=== PATIENT | female | born 1945 | race Hispanic/Latino ===

== ENCOUNTER 2016-08-07 09:53 | Outpatient (CLI) | payer MEDICARE ==
[2016-08-07] MEDS ORDERED: XYLOCAINE TOPICAL 4% TP ONE ×3 (10:52→15:40)
[2016-08-07] MEDS ORDERED: SILVER NITRATE TP ONE ×2 (11:51→15:40)
== END 2016-08-07 09:54 | disposition home or self-care (01) ==
LOC: WOUND 09:53
PROVIDERS: ATTEND Surgery
DX: T81.89XD Other complications of procedures, not elsewhere classified, subsequent encounter (principal); M19.90 Unspecified osteoarthritis, unspecified site; E05.90 Thyrotoxicosis, unspecified without thyrotoxic crisis or storm; F32.9 Major depressive disorder, single episode, unspecified; Z96.641 Presence of right artificial hip joint; Y83.8 Other surgical procedures as the cause of abnormal reaction of the patient, or of later complication, without mention of misadventure at the time of the procedure
CPT/HCPCS: 17250; G0463; 99214

== ENCOUNTER 2016-08-21 08:55 | Outpatient (CLI) | payer MEDICARE ==
[2016-08-21] MEDS ORDERED: XYLOCAINE TOPICAL 2% TP ONE (09:19)
[2016-08-21] MEDS ORDERED: XYLOCAINE TOPICAL 2% ONE (09:19)
== END 2016-08-21 08:56 | disposition home or self-care (01) ==
LOC: WOUND 08:55
PROVIDERS: ATTEND Surgery
DX: T81.89XD Other complications of procedures, not elsewhere classified, subsequent encounter (principal); E03.9 Hypothyroidism, unspecified; M19.90 Unspecified osteoarthritis, unspecified site; F32.9 Major depressive disorder, single episode, unspecified; Z90.710 Acquired absence of both cervix and uterus; Z96.641 Presence of right artificial hip joint; Y83.8 Other surgical procedures as the cause of abnormal reaction of the patient, or of later complication, without mention of misadventure at the time of the procedure

== ENCOUNTER 2016-09-05 08:51 | Outpatient (CLI) | payer MEDICARE ==
[2016-09-05] MEDS ORDERED: XYLOCAINE TOPICAL 4% TP ONE ×2 (09:00→09:06)
== END 2016-09-05 08:52 | disposition home or self-care (01) ==
LOC: WOUND 08:51
PROVIDERS: ATTEND Surgery
DX: T81.89XD Other complications of procedures, not elsewhere classified, subsequent encounter (principal); E03.9 Hypothyroidism, unspecified; M19.90 Unspecified osteoarthritis, unspecified site; F32.9 Major depressive disorder, single episode, unspecified; Z90.710 Acquired absence of both cervix and uterus; Z96.641 Presence of right artificial hip joint; Y83.8 Other surgical procedures as the cause of abnormal reaction of the patient, or of later complication, without mention of misadventure at the time of the procedure
CPT/HCPCS: 99214; G0463

== ENCOUNTER 2016-09-26 09:03 | Outpatient (CLI) | payer MEDICARE ==
[2016-09-26] MEDS ORDERED: XYLOCAINE TOPICAL 2% TP ONE ×2 (09:14→09:37)
[2016-09-26] MEDS ORDERED: SILVER NITRATE TP ONE ×2 (09:20→09:37)
== END 2016-09-26 09:04 | disposition home or self-care (01) ==
LOC: WOUND 09:03
PROVIDERS: ATTEND Surgery
DX: T81.89XD Other complications of procedures, not elsewhere classified, subsequent encounter (principal); E03.9 Hypothyroidism, unspecified; M19.90 Unspecified osteoarthritis, unspecified site; F32.9 Major depressive disorder, single episode, unspecified; Z90.710 Acquired absence of both cervix and uterus; Z96.641 Presence of right artificial hip joint; Y83.8 Other surgical procedures as the cause of abnormal reaction of the patient, or of later complication, without mention of misadventure at the time of the procedure
CPT/HCPCS: 17250; G0463

== ENCOUNTER 2016-10-10 08:53 | Outpatient (CLI) | payer MEDICARE ==
[2016-10-10] MEDS ORDERED: XYLOCAINE TOPICAL 4% TP ONE ×2 (09:10)
[2016-10-10] MEDS ORDERED: SILVER NITRATE TP ONE ×2 (09:22→09:54)
== END 2016-10-10 08:54 | disposition home or self-care (01) ==
LOC: WOUND 08:53
PROVIDERS: ATTEND Surgery
DX: T81.89XD Other complications of procedures, not elsewhere classified, subsequent encounter (principal); E03.9 Hypothyroidism, unspecified; M19.90 Unspecified osteoarthritis, unspecified site; F32.9 Major depressive disorder, single episode, unspecified; Y83.8 Other surgical procedures as the cause of abnormal reaction of the patient, or of later complication, without mention of misadventure at the time of the procedure
CPT/HCPCS: 17250; G0463

== ENCOUNTER 2016-11-07 08:49 | Outpatient (CLI) | payer MEDICARE | END 2016-11-07 08:50 | disposition home or self-care (01) | LOC: WOUND 08:49 | PROVIDERS: ATTEND Surgery | DX: T81.89XD Other complications of procedures, not elsewhere classified, subsequent encounter (principal); E03.9 Hypothyroidism, unspecified; M19.90 Unspecified osteoarthritis, unspecified site; F32.9 Major depressive disorder, single episode, unspecified; Y83.8 Other surgical procedures as the cause of abnormal reaction of the patient, or of later complication, without mention of misadventure at the time of the procedure | CPT/HCPCS: 99214; G0463 ==

== ENCOUNTER 2017-01-23 08:05 | Outpatient (CLI) | payer OTHER, MEDICARE | END 2017-01-23 08:06 | disposition home or self-care (01) | LOC: WOUND 08:05 | PROVIDERS: ATTEND Surgery | DX: T81.89XD Other complications of procedures, not elsewhere classified, subsequent encounter (principal); M19.90 Unspecified osteoarthritis, unspecified site; E03.9 Hypothyroidism, unspecified; F32.9 Major depressive disorder, single episode, unspecified; Z90.710 Acquired absence of both cervix and uterus; Z96.649 Presence of unspecified artificial hip joint; Y83.8 Other surgical procedures as the cause of abnormal reaction of the patient, or of later complication, without mention of misadventure at the time of the procedure | CPT/HCPCS: 99213; G0463 ==

== ENCOUNTER 2017-03-07 07:00 | Outpatient (CLI) | payer MEDICARE ==
[2017-03-07 07:41] LABS: Hematocrit 44.4 % (30.3-42.9); Hemoglobin 13.9 gm/dl (10.1-14.3); Mean Corpuscular HGB Conc 31 % (30-34); Mean Corpuscular Hemoglobin 29 pg (28-32); Mean Corpuscular Volume 93 fl (79-97); Platelet Count 217 K/mm3 (140-440); Red Blood Count 4.78 M/mm3 (3.65-5.03); Red Cell Distribution Width 14.7 % (13.2-15.2)
[2017-03-07 07:48] LABS: BUN/Creatinine Ratio 21; Blood Urea Nitrogen 15 mg/dL (7-17); Calcium 8.3 mg/dL (8.4-10.2); Hemolysis Index 11
[2017-03-07] MEDS ORDERED: NACL ONE (07:53)
--- NOTE | 2017-03-07 08:49 | Cat Scan Report ---
CT CHEST WITH CONTRAST: HISTORY: Elevated right hemidiaphragm, abnormal chest x-ray. COMPARISON: CT chest with contrast dated 03/30/11. TECHNIQUE: Helical CT in 1.25mm intervals following IV contrast. Sagittal and coronal reformatted images. FINDINGS: Thyroid gland: Normal. Tracheobronchial tree: Normal. Mild physiologic calcifications in the tracheobronchial tree are noted. Esophagus: Normal. Surgical suture lines are partially imaged in the proximal stomach which may represent gastric bypass changes, correlate with history. Heart: Normal. Pericardium: Normal. Mediastinum: Normal. No mass, adenopathy or inflammation. Lung Ryan: The lung parenchyma is within normal limits. No underlying parenchymal lung disease is suspected. There is mild compressive atelectasis at the right lung base from an elevated right hemidiaphragm. The right hemidiaphragm is elevated 3 rib levels or 7 cm compared to the left side on the coronal images. Pleural Spaces: Normal. Musculoskeletal: Moderate thoracic spondylosis. No acute fracture or suspicious bony lesion. IMPRESSION: Elevated right hemidiaphragm as outlined above with compressive atelectasis at the right lung base. Otherwise, unremarkable CT chest with contrast. No mass or adenopathy is identified. Surgical changes in the stomach which may represent gastric bypass surgery.
== END 2017-03-07 07:01 | disposition home or self-care (01) ==
LOC: CT 07:00
PROVIDERS: ATTEND Internal Medicine
DX: J98.11 Atelectasis (principal); J39.8 Other specified diseases of upper respiratory tract; J98.6 Disorders of diaphragm; M47.894 Other spondylosis, thoracic region; R93.8 Abnormal findings on diagnostic imaging of other specified body structures
CPT/HCPCS: 36415; 71260; 80048; 85027; Q9967

== ENCOUNTER 2017-07-03 08:12 | Outpatient (CLI) | payer OTHER ==
[2017-07-03] MEDS ORDERED: XYLOCAINE TOPICAL 4% TP ONE (09:30)
== END 2017-07-03 08:13 | disposition home or self-care (01) ==
LOC: WOUND 08:12
PROVIDERS: ATTEND Surgery
DX: T81.89XD Other complications of procedures, not elsewhere classified, subsequent encounter (principal); L97.111 Non-pressure chronic ulcer of right thigh limited to breakdown of skin; M19.90 Unspecified osteoarthritis, unspecified site; E05.90 Thyrotoxicosis, unspecified without thyrotoxic crisis or storm; F32.9 Major depressive disorder, single episode, unspecified; Z90.710 Acquired absence of both cervix and uterus; Z96.641 Presence of right artificial hip joint; Y83.8 Other surgical procedures as the cause of abnormal reaction of the patient, or of later complication, without mention of misadventure at the time of the procedure
CPT/HCPCS: 11042; 87075; 87116; G0463

== ENCOUNTER 2017-07-10 08:16 | Outpatient (CLI) | payer OTHER ==
[2017-07-10] MEDS ORDERED: XYLOCAINE TOPICAL 4% TP ONE ×2 (08:25→08:35)
== END 2017-07-10 08:17 | disposition home or self-care (01) ==
LOC: WOUND 08:16
PROVIDERS: ATTEND Surgery
DX: T81.89XD Other complications of procedures, not elsewhere classified, subsequent encounter (principal); L97.111 Non-pressure chronic ulcer of right thigh limited to breakdown of skin; M19.90 Unspecified osteoarthritis, unspecified site; E05.90 Thyrotoxicosis, unspecified without thyrotoxic crisis or storm; F32.9 Major depressive disorder, single episode, unspecified; Z90.710 Acquired absence of both cervix and uterus; Z96.641 Presence of right artificial hip joint; Y83.8 Other surgical procedures as the cause of abnormal reaction of the patient, or of later complication, without mention of misadventure at the time of the procedure

== ENCOUNTER 2017-07-17 08:17 | Outpatient (CLI) | payer OTHER ==
[2017-07-17] MEDS ORDERED: XYLOCAINE TOPICAL 4% TP ONE ×2 (08:28→08:34)
== END 2017-07-17 08:18 | disposition home or self-care (01) ==
LOC: WOUND 08:17
PROVIDERS: ATTEND Surgery
DX: T81.89XD Other complications of procedures, not elsewhere classified, subsequent encounter (principal); M19.90 Unspecified osteoarthritis, unspecified site; E05.90 Thyrotoxicosis, unspecified without thyrotoxic crisis or storm; F32.9 Major depressive disorder, single episode, unspecified; Z90.710 Acquired absence of both cervix and uterus; Z96.641 Presence of right artificial hip joint; Y83.8 Other surgical procedures as the cause of abnormal reaction of the patient, or of later complication, without mention of misadventure at the time of the procedure

== ENCOUNTER 2017-07-24 08:10 | Outpatient (CLI) | payer OTHER ==
[2017-07-24] MEDS ORDERED: XYLOCAINE TOPICAL 2% 5ML ONE (08:24)
[2017-07-24] MEDS ORDERED: XYLOCAINE TOPICAL 2% 5ML TP ONE (08:31)
== END 2017-07-24 08:11 | disposition home or self-care (01) ==
LOC: WOUND 08:10
PROVIDERS: ATTEND Surgery
DX: T81.89XD Other complications of procedures, not elsewhere classified, subsequent encounter (principal); L97.111 Non-pressure chronic ulcer of right thigh limited to breakdown of skin; M12.551 Traumatic arthropathy, right hip; M19.90 Unspecified osteoarthritis, unspecified site; E05.90 Thyrotoxicosis, unspecified without thyrotoxic crisis or storm; F32.9 Major depressive disorder, single episode, unspecified; Z90.710 Acquired absence of both cervix and uterus; Z96.641 Presence of right artificial hip joint; Y83.8 Other surgical procedures as the cause of abnormal reaction of the patient, or of later complication, without mention of misadventure at the time of the procedure

== ENCOUNTER 2017-07-31 08:12 | Outpatient (CLI) | payer OTHER ==
[2017-07-31] MEDS ORDERED: XYLOCAINE TOPICAL 4% TP ONE ×2 (08:29→08:37)
== END 2017-07-31 08:13 | disposition home or self-care (01) ==
LOC: WOUND 08:12
PROVIDERS: ATTEND Surgery
DX: T81.89XD Other complications of procedures, not elsewhere classified, subsequent encounter (principal); L97.111 Non-pressure chronic ulcer of right thigh limited to breakdown of skin; M19.90 Unspecified osteoarthritis, unspecified site; E05.90 Thyrotoxicosis, unspecified without thyrotoxic crisis or storm; F32.9 Major depressive disorder, single episode, unspecified; Z90.710 Acquired absence of both cervix and uterus; Z96.641 Presence of right artificial hip joint; Y83.8 Other surgical procedures as the cause of abnormal reaction of the patient, or of later complication, without mention of misadventure at the time of the procedure

== ENCOUNTER 2017-08-07 08:18 | Outpatient (CLI) | payer OTHER ==
[2017-08-07] MEDS ORDERED: XYLOCAINE TOPICAL 4% TP ONE ×2 (08:46→08:53)
== END 2017-08-07 08:19 | disposition home or self-care (01) ==
LOC: WOUND 08:18
PROVIDERS: ATTEND Surgery
DX: T81.89XD Other complications of procedures, not elsewhere classified, subsequent encounter (principal); M19.90 Unspecified osteoarthritis, unspecified site; E05.90 Thyrotoxicosis, unspecified without thyrotoxic crisis or storm; F32.9 Major depressive disorder, single episode, unspecified; Z90.710 Acquired absence of both cervix and uterus; Z96.641 Presence of right artificial hip joint; Y83.8 Other surgical procedures as the cause of abnormal reaction of the patient, or of later complication, without mention of misadventure at the time of the procedure
CPT/HCPCS: 99214; G0463

== ENCOUNTER 2017-08-14 08:11 | Outpatient (CLI) | payer OTHER ==
[2017-08-14] MEDS ORDERED: XYLOCAINE TOPICAL 2% 5ML ONE (08:35)
[2017-08-14] MEDS ORDERED: XYLOCAINE TOPICAL 2% 5ML TP ONE (08:41)
== END 2017-08-14 08:12 | disposition home or self-care (01) ==
LOC: WOUND 08:11
PROVIDERS: ATTEND Surgery
DX: T81.89XD Other complications of procedures, not elsewhere classified, subsequent encounter (principal); Z90.710 Acquired absence of both cervix and uterus; Z96.641 Presence of right artificial hip joint; Y83.8 Other surgical procedures as the cause of abnormal reaction of the patient, or of later complication, without mention of misadventure at the time of the procedure

== ENCOUNTER 2017-08-21 08:08 | Outpatient (CLI) | payer OTHER ==
[2017-08-21] MEDS ORDERED: XYLOCAINE TOPICAL 4% TP ONE ×2 (08:32→08:43)
== END 2017-08-21 08:09 | disposition home or self-care (01) ==
LOC: WOUND 08:08
PROVIDERS: ATTEND Surgery
DX: T81.89XD Other complications of procedures, not elsewhere classified, subsequent encounter (principal); M19.90 Unspecified osteoarthritis, unspecified site; E05.90 Thyrotoxicosis, unspecified without thyrotoxic crisis or storm; F32.9 Major depressive disorder, single episode, unspecified; Z90.710 Acquired absence of both cervix and uterus; Z96.641 Presence of right artificial hip joint; Y83.8 Other surgical procedures as the cause of abnormal reaction of the patient, or of later complication, without mention of misadventure at the time of the procedure

== ENCOUNTER 2017-08-28 08:08 | Outpatient (CLI) | payer OTHER ==
[2017-08-28] MEDS ORDERED: XYLOCAINE TOPICAL 2% 5ML ONE (08:21)
[2017-08-28] MEDS ORDERED: XYLOCAINE TOPICAL 2% 5ML TP ONE (08:29)
== END 2017-08-28 08:09 | disposition home or self-care (01) ==
LOC: WOUND 08:08
PROVIDERS: ATTEND Surgery
DX: T81.89XD Other complications of procedures, not elsewhere classified, subsequent encounter (principal); L97.111 Non-pressure chronic ulcer of right thigh limited to breakdown of skin; M19.90 Unspecified osteoarthritis, unspecified site; E05.90 Thyrotoxicosis, unspecified without thyrotoxic crisis or storm; F32.9 Major depressive disorder, single episode, unspecified; Z90.710 Acquired absence of both cervix and uterus; Z96.641 Presence of right artificial hip joint; Y83.8 Other surgical procedures as the cause of abnormal reaction of the patient, or of later complication, without mention of misadventure at the time of the procedure

== ENCOUNTER 2017-09-04 08:12 | Outpatient (CLI) | payer OTHER ==
[2017-09-04] MEDS ORDERED: XYLOCAINE TOPICAL 2% 5ML TP ONE (08:59)
== END 2017-09-04 08:13 | disposition home or self-care (01) ==
LOC: WOUND 08:12
PROVIDERS: ATTEND Surgery
DX: T81.89XD Other complications of procedures, not elsewhere classified, subsequent encounter (principal); M19.90 Unspecified osteoarthritis, unspecified site; E05.90 Thyrotoxicosis, unspecified without thyrotoxic crisis or storm; F32.9 Major depressive disorder, single episode, unspecified; Z90.710 Acquired absence of both cervix and uterus; Z96.641 Presence of right artificial hip joint; Y83.8 Other surgical procedures as the cause of abnormal reaction of the patient, or of later complication, without mention of misadventure at the time of the procedure

== ENCOUNTER 2017-09-18 08:09 | Outpatient (CLI) | payer OTHER ==
[2017-09-18] MEDS ORDERED: XYLOCAINE TOPICAL 2% 5ML ONE (08:11)
[2017-09-18] MEDS ORDERED: XYLOCAINE TOPICAL 2% 5ML TP ONE (08:24)
== END 2017-09-18 08:10 | disposition home or self-care (01) ==
LOC: WOUND 08:09
PROVIDERS: ATTEND Surgery
DX: T81.89XD Other complications of procedures, not elsewhere classified, subsequent encounter (principal); M19.90 Unspecified osteoarthritis, unspecified site; E05.90 Thyrotoxicosis, unspecified without thyrotoxic crisis or storm; F32.9 Major depressive disorder, single episode, unspecified; Z90.710 Acquired absence of both cervix and uterus; Z96.641 Presence of right artificial hip joint; Y83.8 Other surgical procedures as the cause of abnormal reaction of the patient, or of later complication, without mention of misadventure at the time of the procedure

== ENCOUNTER 2017-10-02 08:17 | Outpatient (CLI) | payer OTHER ==
[2017-10-02] MEDS ORDERED: XYLOCAINE TOPICAL 4% TP ONE ×2 (08:34→09:13)
== END 2017-10-02 08:18 | disposition home or self-care (01) ==
LOC: WOUND 08:17
PROVIDERS: ATTEND Surgery
DX: T81.89XD Other complications of procedures, not elsewhere classified, subsequent encounter (principal); M19.90 Unspecified osteoarthritis, unspecified site; E05.90 Thyrotoxicosis, unspecified without thyrotoxic crisis or storm; F32.9 Major depressive disorder, single episode, unspecified; Z90.710 Acquired absence of both cervix and uterus; Z96.641 Presence of right artificial hip joint; Y83.8 Other surgical procedures as the cause of abnormal reaction of the patient, or of later complication, without mention of misadventure at the time of the procedure
CPT/HCPCS: 99214; G0463

== ENCOUNTER 2017-10-30 08:08 | Outpatient (CLI) | payer OTHER | END 2017-10-30 08:09 | disposition home or self-care (01) | LOC: WOUND 08:08 | PROVIDERS: ATTEND Surgery | DX: T81.89XD Other complications of procedures, not elsewhere classified, subsequent encounter (principal); L97.119 Non-pressure chronic ulcer of right thigh with unspecified severity; M19.90 Unspecified osteoarthritis, unspecified site; E05.90 Thyrotoxicosis, unspecified without thyrotoxic crisis or storm; F32.9 Major depressive disorder, single episode, unspecified; Z90.710 Acquired absence of both cervix and uterus; Z96.641 Presence of right artificial hip joint; Y83.8 Other surgical procedures as the cause of abnormal reaction of the patient, or of later complication, without mention of misadventure at the time of the procedure | CPT/HCPCS: 99212; G0463 ==

== ENCOUNTER 2018-03-26 08:11 | Outpatient (CLI) | payer OTHER, MEDICARE ==
[2018-03-26] MEDS ORDERED: XYLOCAINE TOPICAL 4% TP ONE (08:17)
[2018-03-26] MEDS ORDERED: AD OINTMENT TP PRN (08:18)
== END 2018-03-26 08:12 | disposition home or self-care (01) ==
LOC: WOUND 08:11
PROVIDERS: ATTEND Surgery
DX: T81.89XD Other complications of procedures, not elsewhere classified, subsequent encounter (principal); E03.9 Hypothyroidism, unspecified; M19.90 Unspecified osteoarthritis, unspecified site; F32.9 Major depressive disorder, single episode, unspecified; Z90.710 Acquired absence of both cervix and uterus; Y83.8 Other surgical procedures as the cause of abnormal reaction of the patient, or of later complication, without mention of misadventure at the time of the procedure
CPT/HCPCS: 11042; 11045; G0463; 99215

== ENCOUNTER 2018-04-02 08:29 | Outpatient (CLI) | payer MEDICARE ==
[2018-04-02] MEDS ORDERED: XYLOCAINE TOPICAL 4% TP ONE (08:40)
== END 2018-04-02 08:30 | disposition home or self-care (01) ==
LOC: WOUND 08:29
PROVIDERS: ATTEND Surgery
DX: S71.001D Unspecified open wound, right hip, subsequent encounter (principal); E05.90 Thyrotoxicosis, unspecified without thyrotoxic crisis or storm; M19.90 Unspecified osteoarthritis, unspecified site; F32.9 Major depressive disorder, single episode, unspecified; Z90.710 Acquired absence of both cervix and uterus; X58.XXXD Exposure to other specified factors, subsequent encounter

== ENCOUNTER 2018-04-09 08:08 | Outpatient (CLI) | payer OTHER, MEDICARE | END 2018-04-09 08:09 | disposition home or self-care (01) | LOC: WOUND 08:08 ==

== ENCOUNTER 2018-04-16 08:20 | Outpatient (CLI) | payer MEDICARE ==
[2018-04-16] MEDS ORDERED: XYLOCAINE TOPICAL 4% TP ONE (08:23)
[2018-04-16] MEDS ORDERED: AD OINTMENT TP PRN (08:30)
== END 2018-04-16 08:21 | disposition home or self-care (01) ==
LOC: WOUND 08:20
PROVIDERS: ATTEND Surgery
DX: S71.001D Unspecified open wound, right hip, subsequent encounter (principal); M19.90 Unspecified osteoarthritis, unspecified site; E05.90 Thyrotoxicosis, unspecified without thyrotoxic crisis or storm; F32.9 Major depressive disorder, single episode, unspecified; Z90.710 Acquired absence of both cervix and uterus; Z96.641 Presence of right artificial hip joint; X58.XXXD Exposure to other specified factors, subsequent encounter

== ENCOUNTER 2018-04-30 08:12 | Outpatient (CLI) | payer MEDICARE ==
[2018-04-30] MEDS ORDERED: SILVER NITRATE TP ONE (08:33)
== END 2018-04-30 08:13 | disposition home or self-care (01) ==
LOC: WOUND 08:12
PROVIDERS: ATTEND Surgery
DX: S71.001D Unspecified open wound, right hip, subsequent encounter (principal); I10 Essential (primary) hypertension; M19.90 Unspecified osteoarthritis, unspecified site; F32.9 Major depressive disorder, single episode, unspecified; E05.90 Thyrotoxicosis, unspecified without thyrotoxic crisis or storm; Z90.710 Acquired absence of both cervix and uterus; X58.XXXD Exposure to other specified factors, subsequent encounter

== ENCOUNTER 2018-05-14 08:11 | Outpatient (CLI) | payer MEDICARE ==
[2018-05-14] MEDS ORDERED: SILVER NITRATE TP ONE (09:00)
[2018-05-14] MEDS ORDERED: XYLOCAINE TOPICAL 4% TP ONE (09:00)
== END 2018-05-14 08:12 | disposition home or self-care (01) ==
LOC: WOUND 08:11
PROVIDERS: ATTEND Surgery
DX: S71.001D Unspecified open wound, right hip, subsequent encounter (principal); M19.90 Unspecified osteoarthritis, unspecified site; E05.90 Thyrotoxicosis, unspecified without thyrotoxic crisis or storm; F32.9 Major depressive disorder, single episode, unspecified; Z90.710 Acquired absence of both cervix and uterus; X58.XXXD Exposure to other specified factors, subsequent encounter

== ENCOUNTER 2018-05-21 08:04 | Outpatient (CLI) | payer MEDICARE ==
[2018-05-21] MEDS ORDERED: XYLOCAINE TOPICAL 4% TP ONE (08:30)
[2018-05-21] MEDS ORDERED: SILVER NITRATE TP ONE (08:30)
== END 2018-05-21 08:05 | disposition home or self-care (01) ==
LOC: WOUND 08:04
PROVIDERS: ATTEND Surgery
DX: S71.001D Unspecified open wound, right hip, subsequent encounter (principal); M19.90 Unspecified osteoarthritis, unspecified site; E05.90 Thyrotoxicosis, unspecified without thyrotoxic crisis or storm; F32.9 Major depressive disorder, single episode, unspecified; Z90.710 Acquired absence of both cervix and uterus; Z96.641 Presence of right artificial hip joint; X58.XXXD Exposure to other specified factors, subsequent encounter

== ENCOUNTER 2018-05-28 08:03 | Outpatient (CLI) | payer MEDICARE ==
[2018-05-28] MEDS ORDERED: SILVER NITRATE TP ONE (09:00)
[2018-05-28] MEDS ORDERED: XYLOCAINE TOPICAL 4% TP ONE (09:00)
== END 2018-05-28 08:04 | disposition home or self-care (01) ==
LOC: WOUND 08:03
PROVIDERS: ATTEND Surgery
DX: S71.001D Unspecified open wound, right hip, subsequent encounter (principal); M19.90 Unspecified osteoarthritis, unspecified site; E05.90 Thyrotoxicosis, unspecified without thyrotoxic crisis or storm; F32.9 Major depressive disorder, single episode, unspecified; Z90.710 Acquired absence of both cervix and uterus; Z96.641 Presence of right artificial hip joint; X58.XXXD Exposure to other specified factors, subsequent encounter

== ENCOUNTER 2018-06-11 08:02 | Outpatient (CLI) | payer MEDICARE | END 2018-06-11 08:03 | disposition home or self-care (01) | LOC: WOUND 08:02 | PROVIDERS: ATTEND Surgery | DX: S71.001D Unspecified open wound, right hip, subsequent encounter (principal); E05.90 Thyrotoxicosis, unspecified without thyrotoxic crisis or storm; M19.90 Unspecified osteoarthritis, unspecified site; F32.9 Major depressive disorder, single episode, unspecified; Z96.641 Presence of right artificial hip joint; Z90.710 Acquired absence of both cervix and uterus; X58.XXXD Exposure to other specified factors, subsequent encounter | CPT/HCPCS: 97597 ==

== ENCOUNTER 2018-06-18 08:02 | Outpatient (CLI) | payer MEDICARE | END 2018-06-18 08:03 | disposition home or self-care (01) | LOC: WOUND 08:02 | PROVIDERS: ATTEND Surgery | DX: S71.001D Unspecified open wound, right hip, subsequent encounter (principal); M19.90 Unspecified osteoarthritis, unspecified site; F32.9 Major depressive disorder, single episode, unspecified; E05.90 Thyrotoxicosis, unspecified without thyrotoxic crisis or storm; Z90.710 Acquired absence of both cervix and uterus; Z96.641 Presence of right artificial hip joint; X58.XXXD Exposure to other specified factors, subsequent encounter ==

== ENCOUNTER 2018-06-25 08:05 | Outpatient (CLI) | payer MEDICARE ==
[2018-06-25] MEDS ORDERED: XYLOCAINE TOPICAL 4% TP ONE (08:30)
== END 2018-06-25 08:06 | disposition home or self-care (01) ==
LOC: WOUND 08:05
PROVIDERS: ATTEND Surgery
DX: S71.001D Unspecified open wound, right hip, subsequent encounter (principal); M19.90 Unspecified osteoarthritis, unspecified site; F32.9 Major depressive disorder, single episode, unspecified; E05.90 Thyrotoxicosis, unspecified without thyrotoxic crisis or storm; Z90.710 Acquired absence of both cervix and uterus; Z96.641 Presence of right artificial hip joint; X58.XXXD Exposure to other specified factors, subsequent encounter

== ENCOUNTER 2018-07-02 07:55 | Outpatient (CLI) | payer MEDICARE | END 2018-07-02 07:56 | disposition home or self-care (01) | LOC: WOUND 07:55 | PROVIDERS: ATTEND Surgery | DX: S71.001D Unspecified open wound, right hip, subsequent encounter (principal); M19.90 Unspecified osteoarthritis, unspecified site; F32.9 Major depressive disorder, single episode, unspecified; E05.90 Thyrotoxicosis, unspecified without thyrotoxic crisis or storm; Z90.710 Acquired absence of both cervix and uterus; Z96.641 Presence of right artificial hip joint; X58.XXXD Exposure to other specified factors, subsequent encounter ==

== ENCOUNTER 2018-07-09 08:06 | Outpatient (CLI) | payer MEDICARE ==
[2018-07-09] MEDS ORDERED: SILVER NITRATE TP ONE (08:30)
[2018-07-09] MEDS ORDERED: XYLOCAINE TOPICAL 4% TP ONE (08:30)
== END 2018-07-09 08:07 | disposition home or self-care (01) ==
LOC: WOUND 08:06
PROVIDERS: ATTEND Surgery
DX: S71.001D Unspecified open wound, right hip, subsequent encounter (principal); M19.90 Unspecified osteoarthritis, unspecified site; E05.90 Thyrotoxicosis, unspecified without thyrotoxic crisis or storm; F32.9 Major depressive disorder, single episode, unspecified; Z90.710 Acquired absence of both cervix and uterus; Z96.641 Presence of right artificial hip joint; X58.XXXD Exposure to other specified factors, subsequent encounter

== ENCOUNTER 2018-07-16 07:58 | Outpatient (CLI) | payer MEDICARE | END 2018-07-16 07:59 | disposition home or self-care (01) | LOC: WOUND 07:58 | PROVIDERS: ATTEND Surgery | DX: S71.001D Unspecified open wound, right hip, subsequent encounter (principal); M19.90 Unspecified osteoarthritis, unspecified site; E05.90 Thyrotoxicosis, unspecified without thyrotoxic crisis or storm; F32.9 Major depressive disorder, single episode, unspecified; Z90.710 Acquired absence of both cervix and uterus; Z96.641 Presence of right artificial hip joint; X58.XXXD Exposure to other specified factors, subsequent encounter ==

== ENCOUNTER 2018-07-23 08:05 | Outpatient (CLI) | payer MEDICARE ==
[2018-07-23] MEDS ORDERED: XYLOCAINE TOPICAL 4% TP ONE (08:30)
== END 2018-07-23 08:06 | disposition home or self-care (01) ==
LOC: WOUND 08:05
PROVIDERS: ATTEND Surgery
DX: S71.001D Unspecified open wound, right hip, subsequent encounter (principal); M19.90 Unspecified osteoarthritis, unspecified site; E05.90 Thyrotoxicosis, unspecified without thyrotoxic crisis or storm; F32.9 Major depressive disorder, single episode, unspecified; Z90.710 Acquired absence of both cervix and uterus; Z96.641 Presence of right artificial hip joint; X58.XXXD Exposure to other specified factors, subsequent encounter

== ENCOUNTER 2018-07-30 08:03 | Outpatient (CLI) | payer MEDICARE ==
[2018-07-30] MEDS ORDERED: XYLOCAINE TOPICAL 4% TP ONE (08:30)
[2018-07-30] MEDS ORDERED: SILVER NITRATE TP ONE (08:30)
== END 2018-07-30 08:04 | disposition home or self-care (01) ==
LOC: WOUND 08:03
PROVIDERS: ATTEND Surgery
DX: S71.001D Unspecified open wound, right hip, subsequent encounter (principal); M19.90 Unspecified osteoarthritis, unspecified site; E05.90 Thyrotoxicosis, unspecified without thyrotoxic crisis or storm; F32.9 Major depressive disorder, single episode, unspecified; Z90.710 Acquired absence of both cervix and uterus; Z96.641 Presence of right artificial hip joint; X58.XXXD Exposure to other specified factors, subsequent encounter

== ENCOUNTER 2018-08-06 08:03 | Outpatient (CLI) | payer MEDICARE ==
[2018-08-06] MEDS ORDERED: XYLOCAINE TOPICAL 4% TP ONE (08:30)
== END 2018-08-06 08:04 | disposition home or self-care (01) ==
LOC: WOUND 08:03
PROVIDERS: ATTEND Surgery
DX: S71.001D Unspecified open wound, right hip, subsequent encounter (principal); M19.90 Unspecified osteoarthritis, unspecified site; E05.90 Thyrotoxicosis, unspecified without thyrotoxic crisis or storm; F32.9 Major depressive disorder, single episode, unspecified; Z90.710 Acquired absence of both cervix and uterus; Z96.641 Presence of right artificial hip joint; X58.XXXD Exposure to other specified factors, subsequent encounter

== ENCOUNTER 2018-08-13 07:57 | Outpatient (CLI) | payer MEDICARE ==
[2018-08-13] MEDS ORDERED: XYLOCAINE TOPICAL 4% TP ONE (08:30)
== END 2018-08-13 07:58 | disposition home or self-care (01) ==
LOC: WOUND 07:57
PROVIDERS: ATTEND Surgery
DX: S71.001D Unspecified open wound, right hip, subsequent encounter (principal); M19.90 Unspecified osteoarthritis, unspecified site; E05.90 Thyrotoxicosis, unspecified without thyrotoxic crisis or storm; F32.9 Major depressive disorder, single episode, unspecified; Z90.710 Acquired absence of both cervix and uterus; Z96.641 Presence of right artificial hip joint; X58.XXXD Exposure to other specified factors, subsequent encounter

== ENCOUNTER 2018-08-27 08:07 | Outpatient (CLI) | payer MEDICARE | END 2018-08-27 08:08 | disposition home or self-care (01) | LOC: WOUND 08:07 | PROVIDERS: ATTEND Surgery | DX: S71.001D Unspecified open wound, right hip, subsequent encounter (principal); L97.113 Non-pressure chronic ulcer of right thigh with necrosis of muscle; M19.90 Unspecified osteoarthritis, unspecified site; E05.90 Thyrotoxicosis, unspecified without thyrotoxic crisis or storm; F32.9 Major depressive disorder, single episode, unspecified; Z90.710 Acquired absence of both cervix and uterus; Z96.641 Presence of right artificial hip joint; X58.XXXD Exposure to other specified factors, subsequent encounter | CPT/HCPCS: 97605 ==

== ENCOUNTER 2018-09-03 07:59 | Outpatient (CLI) | payer MEDICARE ==
[2018-09-03] MEDS ORDERED: XYLOCAINE TOPICAL 4% TP ONE (08:30)
== END 2018-09-03 08:00 | disposition home or self-care (01) ==
LOC: WOUND 07:59
PROVIDERS: ATTEND Surgery
DX: S71.001D Unspecified open wound, right hip, subsequent encounter (principal); L97.113 Non-pressure chronic ulcer of right thigh with necrosis of muscle; M19.90 Unspecified osteoarthritis, unspecified site; E05.90 Thyrotoxicosis, unspecified without thyrotoxic crisis or storm; F32.9 Major depressive disorder, single episode, unspecified; Z90.710 Acquired absence of both cervix and uterus; Z96.641 Presence of right artificial hip joint; X58.XXXD Exposure to other specified factors, subsequent encounter
CPT/HCPCS: 97605

== ENCOUNTER 2018-09-10 09:13 | Outpatient (CLI) | payer MEDICARE ==
[2018-09-10] MEDS ORDERED: XYLOCAINE TOPICAL 4% TP ONE (09:30)
== END 2018-09-10 09:14 | disposition home or self-care (01) ==
LOC: WOUND 09:13
PROVIDERS: ATTEND Surgery
DX: S71.001D Unspecified open wound, right hip, subsequent encounter (principal); L97.113 Non-pressure chronic ulcer of right thigh with necrosis of muscle; M19.90 Unspecified osteoarthritis, unspecified site; E05.90 Thyrotoxicosis, unspecified without thyrotoxic crisis or storm; F32.9 Major depressive disorder, single episode, unspecified; Z90.710 Acquired absence of both cervix and uterus; Z96.641 Presence of right artificial hip joint; X58.XXXD Exposure to other specified factors, subsequent encounter
CPT/HCPCS: 97605

== ENCOUNTER 2018-09-17 07:55 | Outpatient (CLI) | payer MEDICARE ==
[2018-09-17] MEDS ORDERED: XYLOCAINE TOPICAL 4% TP ONE (08:30)
[2018-09-17] MEDS ORDERED: SILVER NITRATE TP ONE (08:30)
== END 2018-09-17 07:56 | disposition home or self-care (01) ==
LOC: WOUND 07:55
PROVIDERS: ATTEND Surgery
DX: S71.001D Unspecified open wound, right hip, subsequent encounter (principal); L97.113 Non-pressure chronic ulcer of right thigh with necrosis of muscle; M19.90 Unspecified osteoarthritis, unspecified site; E05.90 Thyrotoxicosis, unspecified without thyrotoxic crisis or storm; F32.9 Major depressive disorder, single episode, unspecified; Z90.710 Acquired absence of both cervix and uterus; Z96.641 Presence of right artificial hip joint; X58.XXXD Exposure to other specified factors, subsequent encounter
CPT/HCPCS: 97605

== ENCOUNTER 2018-09-24 07:54 | Outpatient (CLI) | payer MEDICARE ==
[2018-09-24] MEDS ORDERED: XYLOCAINE TOPICAL 4% TP ONE (08:30)
== END 2018-09-24 07:55 | disposition home or self-care (01) ==
LOC: WOUND 07:54
PROVIDERS: ATTEND Surgery
DX: S71.001D Unspecified open wound, right hip, subsequent encounter (principal); L97.113 Non-pressure chronic ulcer of right thigh with necrosis of muscle; M19.90 Unspecified osteoarthritis, unspecified site; E05.90 Thyrotoxicosis, unspecified without thyrotoxic crisis or storm; F32.9 Major depressive disorder, single episode, unspecified; Z90.710 Acquired absence of both cervix and uterus; Z96.641 Presence of right artificial hip joint; X58.XXXD Exposure to other specified factors, subsequent encounter
CPT/HCPCS: 97605

== ENCOUNTER 2018-10-01 07:58 | Outpatient (CLI) | payer MEDICARE | END 2018-10-01 07:59 | disposition home or self-care (01) | LOC: WOUND 07:58 | PROVIDERS: ATTEND Surgery | DX: S71.001D Unspecified open wound, right hip, subsequent encounter (principal); L97.113 Non-pressure chronic ulcer of right thigh with necrosis of muscle; M19.90 Unspecified osteoarthritis, unspecified site; E05.90 Thyrotoxicosis, unspecified without thyrotoxic crisis or storm; F32.9 Major depressive disorder, single episode, unspecified; Z90.710 Acquired absence of both cervix and uterus; Z96.641 Presence of right artificial hip joint; X58.XXXD Exposure to other specified factors, subsequent encounter | CPT/HCPCS: 97605 ==

== ENCOUNTER 2018-10-08 08:08 | Outpatient (CLI) | payer MEDICARE ==
[2018-10-08] MEDS ORDERED: XYLOCAINE TOPICAL 4% TP ONE (09:00)
== END 2018-10-08 08:09 | disposition home or self-care (01) ==
LOC: WOUND 08:08
PROVIDERS: ATTEND Surgery
DX: S71.001D Unspecified open wound, right hip, subsequent encounter (principal); L97.113 Non-pressure chronic ulcer of right thigh with necrosis of muscle; M19.90 Unspecified osteoarthritis, unspecified site; E05.90 Thyrotoxicosis, unspecified without thyrotoxic crisis or storm; F32.9 Major depressive disorder, single episode, unspecified; Z90.710 Acquired absence of both cervix and uterus; Z96.641 Presence of right artificial hip joint; X58.XXXD Exposure to other specified factors, subsequent encounter
CPT/HCPCS: 97605

== ENCOUNTER 2018-10-15 09:47 | Outpatient (CLI) | payer MEDICARE ==
[2018-10-15] MEDS ORDERED: XYLOCAINE TOPICAL 4% TP ONE (10:00)
== END 2018-10-15 09:48 | disposition home or self-care (01) ==
LOC: WOUND 09:47
PROVIDERS: ATTEND Surgery
DX: S71.001D Unspecified open wound, right hip, subsequent encounter (principal); L97.113 Non-pressure chronic ulcer of right thigh with necrosis of muscle; M19.90 Unspecified osteoarthritis, unspecified site; E05.90 Thyrotoxicosis, unspecified without thyrotoxic crisis or storm; F32.9 Major depressive disorder, single episode, unspecified; Z90.710 Acquired absence of both cervix and uterus; Z96.641 Presence of right artificial hip joint; X58.XXXD Exposure to other specified factors, subsequent encounter
CPT/HCPCS: 97605

== ENCOUNTER 2018-10-20 08:02 | Outpatient (CLI) | payer MEDICARE ==
[2018-10-20] MEDS ORDERED: XYLOCAINE TOPICAL 4% TP ONE (09:00)
== END 2018-10-20 08:03 | disposition home or self-care (01) ==
LOC: WOUND 08:02
PROVIDERS: ATTEND Surgery
DX: S71.001D Unspecified open wound, right hip, subsequent encounter (principal); L97.113 Non-pressure chronic ulcer of right thigh with necrosis of muscle; M19.90 Unspecified osteoarthritis, unspecified site; E05.90 Thyrotoxicosis, unspecified without thyrotoxic crisis or storm; F32.9 Major depressive disorder, single episode, unspecified; Z90.710 Acquired absence of both cervix and uterus; Z96.641 Presence of right artificial hip joint; X58.XXXD Exposure to other specified factors, subsequent encounter
CPT/HCPCS: 97605

== ENCOUNTER 2018-10-23 08:28 | Outpatient (CLI) | payer MEDICARE | END 2018-10-23 08:29 | disposition home or self-care (01) | LOC: WOUND 08:28 | PROVIDERS: ATTEND Surgery | DX: S71.001D Unspecified open wound, right hip, subsequent encounter (principal); L97.113 Non-pressure chronic ulcer of right thigh with necrosis of muscle; M19.90 Unspecified osteoarthritis, unspecified site; E05.90 Thyrotoxicosis, unspecified without thyrotoxic crisis or storm; F32.9 Major depressive disorder, single episode, unspecified; Z90.710 Acquired absence of both cervix and uterus; Z96.641 Presence of right artificial hip joint; X58.XXXD Exposure to other specified factors, subsequent encounter | CPT/HCPCS: 97605 ==

== ENCOUNTER 2018-10-27 07:52 | Outpatient (CLI) | payer MEDICARE | END 2018-10-27 07:53 | disposition home or self-care (01) | LOC: WOUND 07:52 | PROVIDERS: ATTEND Surgery | DX: S71.001D Unspecified open wound, right hip, subsequent encounter (principal); L97.113 Non-pressure chronic ulcer of right thigh with necrosis of muscle; M19.90 Unspecified osteoarthritis, unspecified site; E05.90 Thyrotoxicosis, unspecified without thyrotoxic crisis or storm; F32.9 Major depressive disorder, single episode, unspecified; Z90.710 Acquired absence of both cervix and uterus; Z96.641 Presence of right artificial hip joint; X58.XXXD Exposure to other specified factors, subsequent encounter | CPT/HCPCS: 97605 ==

== ENCOUNTER 2018-10-30 08:12 | Outpatient (CLI) | payer MEDICARE | END 2018-10-30 08:13 | disposition home or self-care (01) | LOC: WOUND 08:12 | PROVIDERS: ATTEND Surgery | DX: S71.001D Unspecified open wound, right hip, subsequent encounter (principal); L97.113 Non-pressure chronic ulcer of right thigh with necrosis of muscle; M19.90 Unspecified osteoarthritis, unspecified site; E05.90 Thyrotoxicosis, unspecified without thyrotoxic crisis or storm; F32.9 Major depressive disorder, single episode, unspecified; Z90.710 Acquired absence of both cervix and uterus; Z96.641 Presence of right artificial hip joint; X58.XXXD Exposure to other specified factors, subsequent encounter | CPT/HCPCS: 97605 ==

== ENCOUNTER 2018-11-03 07:58 | Outpatient (CLI) | payer MEDICARE | END 2018-11-03 07:59 | disposition home or self-care (01) | LOC: WOUND 07:58 | PROVIDERS: ATTEND Surgery | DX: S71.001D Unspecified open wound, right hip, subsequent encounter (principal); L97.113 Non-pressure chronic ulcer of right thigh with necrosis of muscle; M19.90 Unspecified osteoarthritis, unspecified site; E05.90 Thyrotoxicosis, unspecified without thyrotoxic crisis or storm; F32.9 Major depressive disorder, single episode, unspecified; Z90.710 Acquired absence of both cervix and uterus; Z96.641 Presence of right artificial hip joint; X58.XXXD Exposure to other specified factors, subsequent encounter | CPT/HCPCS: 97605 ==

== ENCOUNTER 2018-11-06 08:01 | Outpatient (CLI) | payer MEDICARE ==
[2018-11-06] MEDS ORDERED: XYLOCAINE TOPICAL 4% TP ONE (08:19)
== END 2018-11-06 08:02 | disposition home or self-care (01) ==
LOC: WOUND 08:01
PROVIDERS: ATTEND Surgery
DX: S71.001D Unspecified open wound, right hip, subsequent encounter (principal); L97.113 Non-pressure chronic ulcer of right thigh with necrosis of muscle; M19.90 Unspecified osteoarthritis, unspecified site; E05.90 Thyrotoxicosis, unspecified without thyrotoxic crisis or storm; F32.9 Major depressive disorder, single episode, unspecified; Z90.710 Acquired absence of both cervix and uterus; Z96.641 Presence of right artificial hip joint; X58.XXXD Exposure to other specified factors, subsequent encounter
CPT/HCPCS: 97605

== ENCOUNTER 2018-11-13 08:03 | Outpatient (CLI) | payer MEDICARE ==
[2018-11-13] MEDS ORDERED: XYLOCAINE TOPICAL 4% TP ONE (08:30)
== END 2018-11-13 08:04 | disposition home or self-care (01) ==
LOC: WOUND 08:03
PROVIDERS: ATTEND Surgery
DX: S71.001D Unspecified open wound, right hip, subsequent encounter (principal); L97.113 Non-pressure chronic ulcer of right thigh with necrosis of muscle; E05.90 Thyrotoxicosis, unspecified without thyrotoxic crisis or storm; M19.90 Unspecified osteoarthritis, unspecified site; F32.9 Major depressive disorder, single episode, unspecified; Z96.641 Presence of right artificial hip joint; Z90.710 Acquired absence of both cervix and uterus; X58.XXXD Exposure to other specified factors, subsequent encounter
CPT/HCPCS: 97605

== ENCOUNTER 2018-11-17 08:10 | Outpatient (CLI) | payer MEDICARE | END 2018-11-17 08:11 | disposition home or self-care (01) | LOC: WOUND 08:10 | PROVIDERS: ATTEND Surgery | DX: S71.001D Unspecified open wound, right hip, subsequent encounter (principal); L97.113 Non-pressure chronic ulcer of right thigh with necrosis of muscle; E05.90 Thyrotoxicosis, unspecified without thyrotoxic crisis or storm; M19.90 Unspecified osteoarthritis, unspecified site; F32.9 Major depressive disorder, single episode, unspecified; Z96.641 Presence of right artificial hip joint; Z90.710 Acquired absence of both cervix and uterus; X58.XXXD Exposure to other specified factors, subsequent encounter | CPT/HCPCS: 97605 ==

== ENCOUNTER 2018-11-20 08:16 | Outpatient (CLI) | payer MEDICARE ==
[2018-11-20] MEDS ORDERED: XYLOCAINE TOPICAL 4% TP ONE (09:00)
== END 2018-11-20 08:17 | disposition home or self-care (01) ==
LOC: WOUND 08:16
PROVIDERS: ATTEND Surgery
DX: S71.001D Unspecified open wound, right hip, subsequent encounter (principal); L97.113 Non-pressure chronic ulcer of right thigh with necrosis of muscle; E05.90 Thyrotoxicosis, unspecified without thyrotoxic crisis or storm; M19.90 Unspecified osteoarthritis, unspecified site; F32.9 Major depressive disorder, single episode, unspecified; Z96.641 Presence of right artificial hip joint; Z90.710 Acquired absence of both cervix and uterus; X58.XXXD Exposure to other specified factors, subsequent encounter
CPT/HCPCS: 97605

== ENCOUNTER 2018-11-24 07:58 | Outpatient (CLI) | payer MEDICARE | END 2018-11-24 07:59 | disposition home or self-care (01) | LOC: WOUND 07:58 | PROVIDERS: ATTEND Surgery | DX: S71.001D Unspecified open wound, right hip, subsequent encounter (principal); L97.113 Non-pressure chronic ulcer of right thigh with necrosis of muscle; E05.90 Thyrotoxicosis, unspecified without thyrotoxic crisis or storm; M19.90 Unspecified osteoarthritis, unspecified site; F32.9 Major depressive disorder, single episode, unspecified; Z96.641 Presence of right artificial hip joint; Z90.710 Acquired absence of both cervix and uterus; X58.XXXD Exposure to other specified factors, subsequent encounter | CPT/HCPCS: 97605 ==

== ENCOUNTER 2018-12-08 08:12 | Outpatient (CLI) | payer MEDICARE | END 2018-12-08 08:13 | disposition home or self-care (01) | LOC: WOUND 08:12 | PROVIDERS: ATTEND Surgery | DX: S71.001D Unspecified open wound, right hip, subsequent encounter (principal); L97.113 Non-pressure chronic ulcer of right thigh with necrosis of muscle; E05.90 Thyrotoxicosis, unspecified without thyrotoxic crisis or storm; M19.90 Unspecified osteoarthritis, unspecified site; F32.9 Major depressive disorder, single episode, unspecified; Z90.710 Acquired absence of both cervix and uterus; Z96.641 Presence of right artificial hip joint; X58.XXXD Exposure to other specified factors, subsequent encounter | CPT/HCPCS: 97605 ==

== ENCOUNTER 2018-12-11 08:05 | Outpatient (CLI) | payer MEDICARE ==
[2018-12-11] MEDS ORDERED: LIDOCAINE (4%) 40 MG/ML TOPICAL SOLN 50 ML BOTTLE TP ONE (09:00)
== END 2018-12-11 08:06 | disposition home or self-care (01) ==
LOC: WOUND 08:05
PROVIDERS: ATTEND Surgery
DX: S71.001D Unspecified open wound, right hip, subsequent encounter (principal); L97.113 Non-pressure chronic ulcer of right thigh with necrosis of muscle; E05.90 Thyrotoxicosis, unspecified without thyrotoxic crisis or storm; M19.90 Unspecified osteoarthritis, unspecified site; F32.9 Major depressive disorder, single episode, unspecified; Z90.710 Acquired absence of both cervix and uterus; Z96.641 Presence of right artificial hip joint; X58.XXXD Exposure to other specified factors, subsequent encounter
CPT/HCPCS: 97605

== ENCOUNTER 2018-12-15 08:04 | Outpatient (CLI) | payer MEDICARE | END 2018-12-15 08:05 | disposition home or self-care (01) | LOC: WOUND 08:04 | PROVIDERS: ATTEND Surgery | DX: S71.001D Unspecified open wound, right hip, subsequent encounter (principal); L97.113 Non-pressure chronic ulcer of right thigh with necrosis of muscle; E05.90 Thyrotoxicosis, unspecified without thyrotoxic crisis or storm; M19.90 Unspecified osteoarthritis, unspecified site; F32.9 Major depressive disorder, single episode, unspecified; Z90.710 Acquired absence of both cervix and uterus; Z96.641 Presence of right artificial hip joint; X58.XXXD Exposure to other specified factors, subsequent encounter | CPT/HCPCS: 97605 ==

== ENCOUNTER 2018-12-18 08:03 | Outpatient (CLI) | payer MEDICARE | END 2018-12-18 08:04 | disposition home or self-care (01) | LOC: WOUND 08:03 | PROVIDERS: ATTEND Surgery | DX: S71.001D Unspecified open wound, right hip, subsequent encounter (principal); L97.113 Non-pressure chronic ulcer of right thigh with necrosis of muscle; E05.90 Thyrotoxicosis, unspecified without thyrotoxic crisis or storm; M19.90 Unspecified osteoarthritis, unspecified site; F32.9 Major depressive disorder, single episode, unspecified; X58.XXXD Exposure to other specified factors, subsequent encounter | CPT/HCPCS: 97605 ==

== ENCOUNTER 2018-12-22 08:01 | Outpatient (CLI) | payer MEDICARE | END 2018-12-22 08:02 | disposition home or self-care (01) | LOC: WOUND 08:01 | PROVIDERS: ATTEND Surgery | DX: S71.001D Unspecified open wound, right hip, subsequent encounter (principal); L97.113 Non-pressure chronic ulcer of right thigh with necrosis of muscle; E05.90 Thyrotoxicosis, unspecified without thyrotoxic crisis or storm; M19.90 Unspecified osteoarthritis, unspecified site; D32.9 Benign neoplasm of meninges, unspecified; Z90.710 Acquired absence of both cervix and uterus; Z96.641 Presence of right artificial hip joint; X58.XXXD Exposure to other specified factors, subsequent encounter | CPT/HCPCS: 97605 ==

== ENCOUNTER 2018-12-23 09:59 | Outpatient (CLI) | payer MEDICARE | END 2018-12-23 10:00 | disposition home or self-care (01) | LOC: WOUND 09:59 | PROVIDERS: ATTEND Surgery | DX: S71.001D Unspecified open wound, right hip, subsequent encounter (principal); L97.113 Non-pressure chronic ulcer of right thigh with necrosis of muscle; E05.90 Thyrotoxicosis, unspecified without thyrotoxic crisis or storm; M19.90 Unspecified osteoarthritis, unspecified site; F32.9 Major depressive disorder, single episode, unspecified; Z90.710 Acquired absence of both cervix and uterus; Z96.641 Presence of right artificial hip joint; X58.XXXD Exposure to other specified factors, subsequent encounter | CPT/HCPCS: 97605 ==

== ENCOUNTER 2018-12-25 08:02 | Outpatient (CLI) | payer MEDICARE ==
[2018-12-25] MEDS ORDERED: XYLOCAINE TOPICAL 4% TP ONE (09:00)
== END 2018-12-25 08:03 | disposition home or self-care (01) ==
LOC: WOUND 08:02
PROVIDERS: ATTEND Surgery
DX: S71.001D Unspecified open wound, right hip, subsequent encounter (principal); L97.113 Non-pressure chronic ulcer of right thigh with necrosis of muscle; E05.90 Thyrotoxicosis, unspecified without thyrotoxic crisis or storm; M19.90 Unspecified osteoarthritis, unspecified site; F32.9 Major depressive disorder, single episode, unspecified; Z90.710 Acquired absence of both cervix and uterus; Z96.641 Presence of right artificial hip joint; X58.XXXD Exposure to other specified factors, subsequent encounter
CPT/HCPCS: 97605

== ENCOUNTER 2018-12-26 12:39 | Outpatient (CLI) | payer MEDICARE | END 2018-12-26 12:40 | disposition home or self-care (01) | LOC: WOUND 12:39 | PROVIDERS: ATTEND Surgery | DX: S71.001D Unspecified open wound, right hip, subsequent encounter (principal); L97.113 Non-pressure chronic ulcer of right thigh with necrosis of muscle; E05.90 Thyrotoxicosis, unspecified without thyrotoxic crisis or storm; M19.90 Unspecified osteoarthritis, unspecified site; Z90.710 Acquired absence of both cervix and uterus; Z96.641 Presence of right artificial hip joint; X58.XXXD Exposure to other specified factors, subsequent encounter | CPT/HCPCS: 82962 ==

== ENCOUNTER 2018-12-29 08:04 | Outpatient (CLI) | payer MEDICARE | END 2018-12-29 08:05 | disposition home or self-care (01) | LOC: WOUND 08:04 | PROVIDERS: ATTEND Surgery | DX: S71.001D Unspecified open wound, right hip, subsequent encounter (principal); L97.113 Non-pressure chronic ulcer of right thigh with necrosis of muscle; E05.90 Thyrotoxicosis, unspecified without thyrotoxic crisis or storm; M19.90 Unspecified osteoarthritis, unspecified site; F32.9 Major depressive disorder, single episode, unspecified; Z90.710 Acquired absence of both cervix and uterus; Z96.641 Presence of right artificial hip joint; X58.XXXD Exposure to other specified factors, subsequent encounter | CPT/HCPCS: 97605 ==

== ENCOUNTER 2019-01-01 08:03 | Outpatient (CLI) | payer MEDICARE ==
[2019-01-01] MEDS ORDERED: XYLOCAINE TOPICAL 4% TP ONE (08:30)
== END 2019-01-01 08:04 | disposition home or self-care (01) ==
LOC: WOUND 08:03
PROVIDERS: ATTEND Surgery
DX: S71.001D Unspecified open wound, right hip, subsequent encounter (principal); L97.113 Non-pressure chronic ulcer of right thigh with necrosis of muscle; E05.90 Thyrotoxicosis, unspecified without thyrotoxic crisis or storm; M19.90 Unspecified osteoarthritis, unspecified site; F32.9 Major depressive disorder, single episode, unspecified; Z90.710 Acquired absence of both cervix and uterus; Z96.641 Presence of right artificial hip joint; X58.XXXD Exposure to other specified factors, subsequent encounter
CPT/HCPCS: 97605

== ENCOUNTER 2019-01-05 07:56 | Outpatient (CLI) | payer MEDICARE | END 2019-01-05 07:57 | disposition home or self-care (01) | LOC: WOUND 07:56 | PROVIDERS: ATTEND Surgery | DX: S71.001D Unspecified open wound, right hip, subsequent encounter (principal); L97.113 Non-pressure chronic ulcer of right thigh with necrosis of muscle; E05.90 Thyrotoxicosis, unspecified without thyrotoxic crisis or storm; M19.90 Unspecified osteoarthritis, unspecified site; F32.9 Major depressive disorder, single episode, unspecified; Z90.710 Acquired absence of both cervix and uterus; Z96.641 Presence of right artificial hip joint; X58.XXXD Exposure to other specified factors, subsequent encounter | CPT/HCPCS: 97605 ==

== ENCOUNTER 2019-01-08 08:07 | Outpatient (CLI) | payer MEDICARE ==
[2019-01-08] MEDS ORDERED: LIDOCAINE (4%) 40 MG/ML TOPICAL SOLN 50 ML BOTTLE TP ONE (08:30)
== END 2019-01-08 08:08 | disposition home or self-care (01) ==
LOC: WOUND 08:07
PROVIDERS: ATTEND Surgery
DX: S71.001D Unspecified open wound, right hip, subsequent encounter (principal); L97.113 Non-pressure chronic ulcer of right thigh with necrosis of muscle; E05.90 Thyrotoxicosis, unspecified without thyrotoxic crisis or storm; M19.90 Unspecified osteoarthritis, unspecified site; F32.9 Major depressive disorder, single episode, unspecified; Z90.710 Acquired absence of both cervix and uterus; Z96.641 Presence of right artificial hip joint; X58.XXXD Exposure to other specified factors, subsequent encounter
CPT/HCPCS: 97605

== ENCOUNTER 2019-01-12 08:05 | Outpatient (CLI) | payer MEDICARE | END 2019-01-12 08:06 | disposition home or self-care (01) | LOC: WOUND 08:05 | PROVIDERS: ATTEND Surgery | DX: S71.001D Unspecified open wound, right hip, subsequent encounter (principal); L97.113 Non-pressure chronic ulcer of right thigh with necrosis of muscle; E05.90 Thyrotoxicosis, unspecified without thyrotoxic crisis or storm; M19.90 Unspecified osteoarthritis, unspecified site; F32.9 Major depressive disorder, single episode, unspecified; Z96.641 Presence of right artificial hip joint; Z90.710 Acquired absence of both cervix and uterus; X58.XXXD Exposure to other specified factors, subsequent encounter | CPT/HCPCS: 97605 ==

== ENCOUNTER 2019-01-15 08:04 | Outpatient (CLI) | payer MEDICARE ==
[2019-01-15] MEDS ORDERED: LIDOCAINE (4%) 40 MG/ML TOPICAL SOLN 50 ML BOTTLE TP ONE (09:00)
== END 2019-01-15 08:05 | disposition home or self-care (01) ==
LOC: WOUND 08:04
PROVIDERS: ATTEND Surgery
DX: S71.001D Unspecified open wound, right hip, subsequent encounter (principal); L97.113 Non-pressure chronic ulcer of right thigh with necrosis of muscle; E05.90 Thyrotoxicosis, unspecified without thyrotoxic crisis or storm; M19.90 Unspecified osteoarthritis, unspecified site; F32.9 Major depressive disorder, single episode, unspecified; Z96.641 Presence of right artificial hip joint; Z90.710 Acquired absence of both cervix and uterus; X58.XXXD Exposure to other specified factors, subsequent encounter
CPT/HCPCS: 97605

== ENCOUNTER 2019-01-19 08:07 | Outpatient (CLI) | payer MEDICARE | END 2019-01-19 08:08 | disposition home or self-care (01) | LOC: WOUND 08:07 | PROVIDERS: ATTEND Surgery | DX: S71.001D Unspecified open wound, right hip, subsequent encounter (principal); L97.113 Non-pressure chronic ulcer of right thigh with necrosis of muscle; E05.90 Thyrotoxicosis, unspecified without thyrotoxic crisis or storm; M19.90 Unspecified osteoarthritis, unspecified site; F32.9 Major depressive disorder, single episode, unspecified; Z96.641 Presence of right artificial hip joint; Z90.710 Acquired absence of both cervix and uterus; X58.XXXD Exposure to other specified factors, subsequent encounter | CPT/HCPCS: 97605 ==

== ENCOUNTER 2019-01-22 08:12 | Outpatient (CLI) | payer MEDICARE ==
[2019-01-22] MEDS ORDERED: LIDOCAINE (4%) 40 MG/ML TOPICAL SOLN 50 ML BOTTLE TP ONE (09:00)
== END 2019-01-22 08:13 | disposition home or self-care (01) ==
LOC: WOUND 08:12
PROVIDERS: ATTEND Surgery
DX: S71.001D Unspecified open wound, right hip, subsequent encounter (principal); L97.113 Non-pressure chronic ulcer of right thigh with necrosis of muscle; E05.90 Thyrotoxicosis, unspecified without thyrotoxic crisis or storm; M19.90 Unspecified osteoarthritis, unspecified site; F32.9 Major depressive disorder, single episode, unspecified; Z96.641 Presence of right artificial hip joint; Z90.710 Acquired absence of both cervix and uterus; X58.XXXD Exposure to other specified factors, subsequent encounter
CPT/HCPCS: 97605

== ENCOUNTER 2019-01-26 08:02 | Outpatient (CLI) | payer MEDICARE | END 2019-01-26 08:03 | disposition home or self-care (01) | LOC: WOUND 08:02 | PROVIDERS: ATTEND Surgery | DX: S71.001D Unspecified open wound, right hip, subsequent encounter (principal); L97.113 Non-pressure chronic ulcer of right thigh with necrosis of muscle; E05.90 Thyrotoxicosis, unspecified without thyrotoxic crisis or storm; M19.90 Unspecified osteoarthritis, unspecified site; F32.9 Major depressive disorder, single episode, unspecified; Z96.641 Presence of right artificial hip joint; Z90.710 Acquired absence of both cervix and uterus; X58.XXXD Exposure to other specified factors, subsequent encounter | CPT/HCPCS: 97605 ==

== ENCOUNTER 2019-01-29 07:59 | Outpatient (CLI) | payer MEDICARE ==
[2019-01-29] MEDS ORDERED: LIDOCAINE (4%) 40 MG/ML TOPICAL SOLN 50 ML BOTTLE TP ONE (08:30)
== END 2019-01-29 08:00 | disposition home or self-care (01) ==
LOC: WOUND 07:59
PROVIDERS: ATTEND Surgery
DX: S71.001D Unspecified open wound, right hip, subsequent encounter (principal); L97.113 Non-pressure chronic ulcer of right thigh with necrosis of muscle; E05.90 Thyrotoxicosis, unspecified without thyrotoxic crisis or storm; M19.90 Unspecified osteoarthritis, unspecified site; F32.9 Major depressive disorder, single episode, unspecified; Z96.641 Presence of right artificial hip joint; Z90.710 Acquired absence of both cervix and uterus; X58.XXXD Exposure to other specified factors, subsequent encounter
CPT/HCPCS: 97605

== ENCOUNTER 2019-02-02 07:53 | Outpatient (CLI) | payer MEDICARE | END 2019-02-02 07:54 | disposition home or self-care (01) | LOC: WOUND 07:53 | PROVIDERS: ATTEND Surgery | DX: S71.001D Unspecified open wound, right hip, subsequent encounter (principal); L97.113 Non-pressure chronic ulcer of right thigh with necrosis of muscle; M19.90 Unspecified osteoarthritis, unspecified site; E05.90 Thyrotoxicosis, unspecified without thyrotoxic crisis or storm; F32.9 Major depressive disorder, single episode, unspecified; Z96.641 Presence of right artificial hip joint; Z90.710 Acquired absence of both cervix and uterus; X58.XXXD Exposure to other specified factors, subsequent encounter | CPT/HCPCS: 97605 ==

== ENCOUNTER 2019-02-04 09:53 | Outpatient (CLI) | payer MEDICARE ==
[2019-02-04] MEDS ORDERED: LIDOCAINE (4%) 40 MG/ML TOPICAL SOLN 50 ML BOTTLE TP ONE (10:30)
== END 2019-02-04 09:54 | disposition home or self-care (01) ==
LOC: WOUND 09:53
PROVIDERS: ATTEND Surgery
DX: S71.001D Unspecified open wound, right hip, subsequent encounter (principal); L97.113 Non-pressure chronic ulcer of right thigh with necrosis of muscle; M19.90 Unspecified osteoarthritis, unspecified site; E05.90 Thyrotoxicosis, unspecified without thyrotoxic crisis or storm; F32.9 Major depressive disorder, single episode, unspecified; Z96.641 Presence of right artificial hip joint; Z90.710 Acquired absence of both cervix and uterus; X58.XXXD Exposure to other specified factors, subsequent encounter
CPT/HCPCS: 97605

== ENCOUNTER 2019-02-09 08:00 | Outpatient (CLI) | payer MEDICARE | END 2019-02-09 08:01 | disposition home or self-care (01) | LOC: WOUND 08:00 | PROVIDERS: ATTEND Surgery | DX: S71.001D Unspecified open wound, right hip, subsequent encounter (principal); L97.113 Non-pressure chronic ulcer of right thigh with necrosis of muscle; M19.90 Unspecified osteoarthritis, unspecified site; E05.90 Thyrotoxicosis, unspecified without thyrotoxic crisis or storm; F32.9 Major depressive disorder, single episode, unspecified; Z96.641 Presence of right artificial hip joint; Z90.710 Acquired absence of both cervix and uterus; X58.XXXD Exposure to other specified factors, subsequent encounter | CPT/HCPCS: 97605 ==

== ENCOUNTER 2019-02-12 08:00 | Outpatient (CLI) | payer MEDICARE ==
[2019-02-12] MEDS ORDERED: LIDOCAINE (4%) 40 MG/ML TOPICAL SOLN 50 ML BOTTLE TP ONE (08:30)
== END 2019-02-12 08:01 | disposition home or self-care (01) ==
LOC: WOUND 08:00
PROVIDERS: ATTEND Surgery
DX: S71.001D Unspecified open wound, right hip, subsequent encounter (principal); L97.113 Non-pressure chronic ulcer of right thigh with necrosis of muscle; M19.90 Unspecified osteoarthritis, unspecified site; E05.90 Thyrotoxicosis, unspecified without thyrotoxic crisis or storm; F32.9 Major depressive disorder, single episode, unspecified; Z96.641 Presence of right artificial hip joint; Z90.710 Acquired absence of both cervix and uterus; X58.XXXD Exposure to other specified factors, subsequent encounter
CPT/HCPCS: 97605

== ENCOUNTER 2019-02-16 08:05 | Outpatient (CLI) | payer MEDICARE | END 2019-02-16 08:06 | disposition home or self-care (01) | LOC: WOUND 08:05 | PROVIDERS: ATTEND Surgery | DX: S71.001D Unspecified open wound, right hip, subsequent encounter (principal); L97.113 Non-pressure chronic ulcer of right thigh with necrosis of muscle; M19.90 Unspecified osteoarthritis, unspecified site; E05.90 Thyrotoxicosis, unspecified without thyrotoxic crisis or storm; F32.9 Major depressive disorder, single episode, unspecified; Z96.641 Presence of right artificial hip joint; Z90.710 Acquired absence of both cervix and uterus; X58.XXXD Exposure to other specified factors, subsequent encounter | CPT/HCPCS: 97605 ==

== ENCOUNTER 2019-02-19 08:00 | Outpatient (CLI) | payer MEDICARE ==
[2019-02-19] MEDS ORDERED: LIDOCAINE (4%) 40 MG/ML TOPICAL SOLN 50 ML BOTTLE TP ONE (08:30)
== END 2019-02-19 08:01 | disposition home or self-care (01) ==
LOC: WOUND 08:00
PROVIDERS: ATTEND Surgery
DX: S71.001D Unspecified open wound, right hip, subsequent encounter (principal); L97.113 Non-pressure chronic ulcer of right thigh with necrosis of muscle; M19.90 Unspecified osteoarthritis, unspecified site; E05.90 Thyrotoxicosis, unspecified without thyrotoxic crisis or storm; F32.9 Major depressive disorder, single episode, unspecified; Z96.641 Presence of right artificial hip joint; Z90.710 Acquired absence of both cervix and uterus; X58.XXXD Exposure to other specified factors, subsequent encounter
CPT/HCPCS: 97605

== ENCOUNTER 2019-02-23 08:07 | Outpatient (CLI) | payer MEDICARE | END 2019-02-23 08:08 | disposition home or self-care (01) | LOC: WOUND 08:07 | PROVIDERS: ATTEND Surgery | DX: S71.001D Unspecified open wound, right hip, subsequent encounter (principal); L97.113 Non-pressure chronic ulcer of right thigh with necrosis of muscle; M19.90 Unspecified osteoarthritis, unspecified site; E05.90 Thyrotoxicosis, unspecified without thyrotoxic crisis or storm; F32.9 Major depressive disorder, single episode, unspecified; Z96.641 Presence of right artificial hip joint; Z90.710 Acquired absence of both cervix and uterus; X58.XXXD Exposure to other specified factors, subsequent encounter | CPT/HCPCS: 97605 ==

== ENCOUNTER 2019-02-26 08:05 | Outpatient (CLI) | payer MEDICARE ==
[2019-02-26] MEDS ORDERED: LIDOCAINE (4%) 40 MG/ML TOPICAL SOLN 50 ML BOTTLE TP ONE (08:09)
== END 2019-02-26 08:06 | disposition home or self-care (01) ==
LOC: WOUND 08:05
PROVIDERS: ATTEND Surgery
DX: S71.001D Unspecified open wound, right hip, subsequent encounter (principal); L97.113 Non-pressure chronic ulcer of right thigh with necrosis of muscle; M19.90 Unspecified osteoarthritis, unspecified site; E05.90 Thyrotoxicosis, unspecified without thyrotoxic crisis or storm; F32.9 Major depressive disorder, single episode, unspecified; Z96.641 Presence of right artificial hip joint; Z90.710 Acquired absence of both cervix and uterus; X58.XXXD Exposure to other specified factors, subsequent encounter
CPT/HCPCS: 97605

== ENCOUNTER 2019-03-02 07:57 | Outpatient (CLI) | payer MEDICARE | END 2019-03-02 07:58 | disposition home or self-care (01) | LOC: WOUND 07:57 | PROVIDERS: ATTEND Surgery | DX: S71.001D Unspecified open wound, right hip, subsequent encounter (principal); L97.113 Non-pressure chronic ulcer of right thigh with necrosis of muscle; E05.90 Thyrotoxicosis, unspecified without thyrotoxic crisis or storm; M19.90 Unspecified osteoarthritis, unspecified site; F32.9 Major depressive disorder, single episode, unspecified; Z96.641 Presence of right artificial hip joint; Z90.710 Acquired absence of both cervix and uterus; X58.XXXD Exposure to other specified factors, subsequent encounter | CPT/HCPCS: 97605 ==

== ENCOUNTER 2019-03-05 07:56 | Outpatient (CLI) | payer MEDICARE | END 2019-03-05 07:57 | disposition home or self-care (01) | LOC: WOUND 07:56 | CPT/HCPCS: 97605 ==

== ENCOUNTER 2019-03-09 08:00 | Outpatient (CLI) | payer MEDICARE | END 2019-03-09 08:01 | disposition home or self-care (01) | LOC: WOUND 08:00 | PROVIDERS: ATTEND Surgery | DX: S71.001D Unspecified open wound, right hip, subsequent encounter (principal); L97.113 Non-pressure chronic ulcer of right thigh with necrosis of muscle; E05.90 Thyrotoxicosis, unspecified without thyrotoxic crisis or storm; M19.90 Unspecified osteoarthritis, unspecified site; F32.9 Major depressive disorder, single episode, unspecified; Z96.641 Presence of right artificial hip joint; Z90.710 Acquired absence of both cervix and uterus; X58.XXXD Exposure to other specified factors, subsequent encounter | CPT/HCPCS: 97605 ==

== ENCOUNTER 2019-03-16 08:04 | Outpatient (CLI) | payer OTHER, MEDICARE | END 2019-03-16 08:05 | disposition home or self-care (01) | LOC: WOUND 08:04 | PROVIDERS: ATTEND Surgery | DX: S71.001D Unspecified open wound, right hip, subsequent encounter (principal); L97.113 Non-pressure chronic ulcer of right thigh with necrosis of muscle; E05.90 Thyrotoxicosis, unspecified without thyrotoxic crisis or storm; M19.90 Unspecified osteoarthritis, unspecified site; F32.9 Major depressive disorder, single episode, unspecified; Z96.641 Presence of right artificial hip joint; Z90.710 Acquired absence of both cervix and uterus; X58.XXXD Exposure to other specified factors, subsequent encounter | CPT/HCPCS: 97605 ==

== ENCOUNTER 2019-03-19 08:08 | Outpatient (CLI) | payer OTHER, MEDICARE ==
[2019-03-19] MEDS ORDERED: LIDOCAINE (4%) 40 MG/ML TOPICAL SOLN 50 ML BOTTLE TP ONE (09:00)
== END 2019-03-19 08:09 | disposition home or self-care (01) ==
LOC: WOUND 08:08
PROVIDERS: ATTEND Surgery
DX: S71.001D Unspecified open wound, right hip, subsequent encounter (principal); L97.113 Non-pressure chronic ulcer of right thigh with necrosis of muscle; E05.90 Thyrotoxicosis, unspecified without thyrotoxic crisis or storm; M19.90 Unspecified osteoarthritis, unspecified site; F32.9 Major depressive disorder, single episode, unspecified; Z96.641 Presence of right artificial hip joint; Z90.710 Acquired absence of both cervix and uterus; X58.XXXD Exposure to other specified factors, subsequent encounter
CPT/HCPCS: 97605

== ENCOUNTER 2019-03-23 08:02 | Outpatient (CLI) | payer OTHER, MEDICARE | END 2019-03-23 08:03 | disposition home or self-care (01) | LOC: WOUND 08:02 | PROVIDERS: ATTEND Surgery | DX: S71.001D Unspecified open wound, right hip, subsequent encounter (principal); L97.113 Non-pressure chronic ulcer of right thigh with necrosis of muscle; E05.90 Thyrotoxicosis, unspecified without thyrotoxic crisis or storm; M19.90 Unspecified osteoarthritis, unspecified site; F32.9 Major depressive disorder, single episode, unspecified; Z96.641 Presence of right artificial hip joint; Z90.710 Acquired absence of both cervix and uterus; X58.XXXD Exposure to other specified factors, subsequent encounter | CPT/HCPCS: 97605 ==

== ENCOUNTER 2019-03-26 08:03 | Outpatient (CLI) | payer OTHER, MEDICARE ==
[2019-03-26] MEDS ORDERED: LIDOCAINE (4%) 40 MG/ML TOPICAL SOLN 50 ML BOTTLE TP ONE (08:30)
== END 2019-03-26 08:04 | disposition home or self-care (01) ==
LOC: WOUND 08:03
PROVIDERS: ATTEND Surgery
DX: L97.113 Non-pressure chronic ulcer of right thigh with necrosis of muscle (principal); S71.001D Unspecified open wound, right hip, subsequent encounter; E05.90 Thyrotoxicosis, unspecified without thyrotoxic crisis or storm; M19.90 Unspecified osteoarthritis, unspecified site; F32.9 Major depressive disorder, single episode, unspecified; Z96.641 Presence of right artificial hip joint; Z90.710 Acquired absence of both cervix and uterus; X58.XXXD Exposure to other specified factors, subsequent encounter
CPT/HCPCS: 97605

== ENCOUNTER 2019-04-02 08:09 | Outpatient (CLI) | payer OTHER, MEDICARE ==
[2019-04-02] MEDS ORDERED: LIDOCAINE (4%) 40 MG/ML TOPICAL SOLN 50 ML BOTTLE TP ONE (08:30)
== END 2019-04-02 08:10 | disposition home or self-care (01) ==
LOC: WOUND 08:09
PROVIDERS: ATTEND Surgery
DX: L97.113 Non-pressure chronic ulcer of right thigh with necrosis of muscle (principal); S71.001D Unspecified open wound, right hip, subsequent encounter; E05.90 Thyrotoxicosis, unspecified without thyrotoxic crisis or storm; M19.90 Unspecified osteoarthritis, unspecified site; F32.9 Major depressive disorder, single episode, unspecified; Z96.641 Presence of right artificial hip joint; Z90.710 Acquired absence of both cervix and uterus; X58.XXXD Exposure to other specified factors, subsequent encounter
CPT/HCPCS: 97605

== ENCOUNTER 2019-04-07 15:00 | Outpatient (CLI) | payer MEDICARE | END 2019-04-07 15:01 | disposition home or self-care (01) | LOC: WOUND 15:00 | PROVIDERS: ATTEND Surgery | DX: L97.113 Non-pressure chronic ulcer of right thigh with necrosis of muscle (principal); S71.001D Unspecified open wound, right hip, subsequent encounter; E05.90 Thyrotoxicosis, unspecified without thyrotoxic crisis or storm; M19.90 Unspecified osteoarthritis, unspecified site; F32.9 Major depressive disorder, single episode, unspecified; Z96.641 Presence of right artificial hip joint; Z90.710 Acquired absence of both cervix and uterus; X58.XXXD Exposure to other specified factors, subsequent encounter | CPT/HCPCS: 97605 ==

== ENCOUNTER 2019-04-09 08:11 | Outpatient (CLI) | payer MEDICARE ==
[2019-04-09] MEDS ORDERED: LIDOCAINE (4%) 40 MG/ML TOPICAL SOLN 50 ML BOTTLE TP ONE (09:00)
== END 2019-04-09 08:12 | disposition home or self-care (01) ==
LOC: WOUND 08:11
PROVIDERS: ATTEND Surgery
DX: L97.113 Non-pressure chronic ulcer of right thigh with necrosis of muscle (principal); S71.001D Unspecified open wound, right hip, subsequent encounter; E05.90 Thyrotoxicosis, unspecified without thyrotoxic crisis or storm; M19.90 Unspecified osteoarthritis, unspecified site; F32.9 Major depressive disorder, single episode, unspecified; Z96.641 Presence of right artificial hip joint; Z90.710 Acquired absence of both cervix and uterus; X58.XXXD Exposure to other specified factors, subsequent encounter
CPT/HCPCS: 97605

== ENCOUNTER 2019-04-13 08:26 | Outpatient (CLI) | payer MEDICARE | END 2019-04-13 08:27 | disposition home or self-care (01) | LOC: WOUND 08:26 | PROVIDERS: ATTEND Surgery | DX: L97.113 Non-pressure chronic ulcer of right thigh with necrosis of muscle (principal); S71.001D Unspecified open wound, right hip, subsequent encounter; E05.90 Thyrotoxicosis, unspecified without thyrotoxic crisis or storm; M19.90 Unspecified osteoarthritis, unspecified site; F32.9 Major depressive disorder, single episode, unspecified; Z96.641 Presence of right artificial hip joint; Z90.710 Acquired absence of both cervix and uterus; X58.XXXD Exposure to other specified factors, subsequent encounter | CPT/HCPCS: 97605 ==

== ENCOUNTER 2019-04-16 07:54 | Outpatient (CLI) | payer MEDICARE ==
[2019-04-16] MEDS ORDERED: LIDOCAINE (4%) 40 MG/ML TOPICAL SOLN 50 ML BOTTLE TP ONE (08:30)
== END 2019-04-16 07:55 | disposition home or self-care (01) ==
LOC: WOUND 07:54
PROVIDERS: ATTEND Surgery
DX: L97.113 Non-pressure chronic ulcer of right thigh with necrosis of muscle (principal); S71.001D Unspecified open wound, right hip, subsequent encounter; E05.90 Thyrotoxicosis, unspecified without thyrotoxic crisis or storm; M19.90 Unspecified osteoarthritis, unspecified site; F32.9 Major depressive disorder, single episode, unspecified; Z96.641 Presence of right artificial hip joint; Z90.710 Acquired absence of both cervix and uterus; X58.XXXD Exposure to other specified factors, subsequent encounter
CPT/HCPCS: 97605

== ENCOUNTER 2019-04-20 08:05 | Outpatient (CLI) | payer MEDICARE | END 2019-04-20 08:06 | disposition home or self-care (01) | LOC: WOUND 08:05 | PROVIDERS: ATTEND Surgery | DX: L97.113 Non-pressure chronic ulcer of right thigh with necrosis of muscle (principal); S71.001D Unspecified open wound, right hip, subsequent encounter; E05.90 Thyrotoxicosis, unspecified without thyrotoxic crisis or storm; M19.90 Unspecified osteoarthritis, unspecified site; F32.9 Major depressive disorder, single episode, unspecified; Z96.641 Presence of right artificial hip joint; Z90.710 Acquired absence of both cervix and uterus; X58.XXXD Exposure to other specified factors, subsequent encounter | CPT/HCPCS: 97605 ==

== ENCOUNTER 2019-04-23 08:02 | Outpatient (CLI) | payer MEDICARE ==
[2019-04-23] MEDS ORDERED: LIDOCAINE (4%) 40 MG/ML TOPICAL SOLN 50 ML BOTTLE TP ONE (09:00)
== END 2019-04-23 08:03 | disposition home or self-care (01) ==
LOC: WOUND 08:02
PROVIDERS: ATTEND Surgery
DX: L97.113 Non-pressure chronic ulcer of right thigh with necrosis of muscle (principal); S71.001D Unspecified open wound, right hip, subsequent encounter; E05.90 Thyrotoxicosis, unspecified without thyrotoxic crisis or storm; M19.90 Unspecified osteoarthritis, unspecified site; F32.9 Major depressive disorder, single episode, unspecified; Z96.641 Presence of right artificial hip joint; Z90.710 Acquired absence of both cervix and uterus; X58.XXXD Exposure to other specified factors, subsequent encounter
CPT/HCPCS: 97605

== ENCOUNTER 2019-04-27 08:00 | Outpatient (CLI) | payer MEDICARE | END 2019-04-27 08:01 | disposition home or self-care (01) | LOC: WOUND 08:00 | PROVIDERS: ATTEND Surgery | DX: L97.113 Non-pressure chronic ulcer of right thigh with necrosis of muscle (principal); S71.001D Unspecified open wound, right hip, subsequent encounter; E05.90 Thyrotoxicosis, unspecified without thyrotoxic crisis or storm; M19.90 Unspecified osteoarthritis, unspecified site; F32.9 Major depressive disorder, single episode, unspecified; Z96.641 Presence of right artificial hip joint; Z90.710 Acquired absence of both cervix and uterus; X58.XXXD Exposure to other specified factors, subsequent encounter | CPT/HCPCS: 97605 ==

== ENCOUNTER 2019-04-30 08:03 | Outpatient (CLI) | payer MEDICARE ==
[2019-04-30] MEDS ORDERED: LIDOCAINE (4%) 40 MG/ML TOPICAL SOLN 50 ML BOTTLE TP ONE (09:00)
== END 2019-04-30 08:04 | disposition home or self-care (01) ==
LOC: WOUND 08:03
PROVIDERS: ATTEND Surgery
DX: L97.113 Non-pressure chronic ulcer of right thigh with necrosis of muscle (principal); S71.001D Unspecified open wound, right hip, subsequent encounter; E05.90 Thyrotoxicosis, unspecified without thyrotoxic crisis or storm; M19.90 Unspecified osteoarthritis, unspecified site; F32.9 Major depressive disorder, single episode, unspecified; Z96.641 Presence of right artificial hip joint; Z90.710 Acquired absence of both cervix and uterus; X58.XXXD Exposure to other specified factors, subsequent encounter
CPT/HCPCS: 97605

== ENCOUNTER 2019-05-04 08:05 | Outpatient (CLI) | payer MEDICARE | END 2019-05-04 08:06 | disposition home or self-care (01) | LOC: WOUND 08:05 | PROVIDERS: ATTEND Surgery | DX: L97.113 Non-pressure chronic ulcer of right thigh with necrosis of muscle (principal); S71.001D Unspecified open wound, right hip, subsequent encounter; E05.90 Thyrotoxicosis, unspecified without thyrotoxic crisis or storm; M19.90 Unspecified osteoarthritis, unspecified site; F32.9 Major depressive disorder, single episode, unspecified; Z96.641 Presence of right artificial hip joint; Z90.710 Acquired absence of both cervix and uterus; X58.XXXD Exposure to other specified factors, subsequent encounter | CPT/HCPCS: 97605 ==

== ENCOUNTER 2019-05-07 08:02 | Outpatient (CLI) | payer MEDICARE ==
[2019-05-07] MEDS ORDERED: LIDOCAINE (4%) 40 MG/ML TOPICAL SOLN 50 ML BOTTLE TP ONE (08:04)
== END 2019-05-07 08:03 | disposition home or self-care (01) ==
LOC: WOUND 08:02
PROVIDERS: ATTEND Surgery
DX: L97.113 Non-pressure chronic ulcer of right thigh with necrosis of muscle (principal); S71.001D Unspecified open wound, right hip, subsequent encounter; E05.90 Thyrotoxicosis, unspecified without thyrotoxic crisis or storm; M19.90 Unspecified osteoarthritis, unspecified site; F32.9 Major depressive disorder, single episode, unspecified; Z96.641 Presence of right artificial hip joint; Z90.710 Acquired absence of both cervix and uterus; X58.XXXD Exposure to other specified factors, subsequent encounter
CPT/HCPCS: 97605

== ENCOUNTER 2019-05-11 08:06 | Outpatient (CLI) | payer MEDICARE | END 2019-05-11 08:07 | disposition home or self-care (01) | LOC: WOUND 08:06 | PROVIDERS: ATTEND Surgery | DX: L97.113 Non-pressure chronic ulcer of right thigh with necrosis of muscle (principal); S71.001D Unspecified open wound, right hip, subsequent encounter; E05.90 Thyrotoxicosis, unspecified without thyrotoxic crisis or storm; M19.90 Unspecified osteoarthritis, unspecified site; F32.9 Major depressive disorder, single episode, unspecified; Z96.641 Presence of right artificial hip joint; Z90.710 Acquired absence of both cervix and uterus; X58.XXXD Exposure to other specified factors, subsequent encounter | CPT/HCPCS: 97605 ==

== ENCOUNTER 2019-05-21 08:05 | Outpatient (CLI) | payer MEDICARE ==
[2019-05-21] MEDS ORDERED: LIDOCAINE (4%) 40 MG/ML TOPICAL SOLN 50 ML BOTTLE TP ONE (08:30)
== END 2019-05-21 08:06 | disposition home or self-care (01) ==
LOC: WOUND 08:05
PROVIDERS: ATTEND Surgery
DX: L98.492 Non-pressure chronic ulcer of skin of other sites with fat layer exposed (principal); L97.113 Non-pressure chronic ulcer of right thigh with necrosis of muscle; M19.90 Unspecified osteoarthritis, unspecified site; F32.9 Major depressive disorder, single episode, unspecified; E05.90 Thyrotoxicosis, unspecified without thyrotoxic crisis or storm; Z90.710 Acquired absence of both cervix and uterus; Z96.641 Presence of right artificial hip joint
CPT/HCPCS: 97605

== ENCOUNTER 2019-05-25 08:00 | Outpatient (CLI) | payer MEDICARE | END 2019-05-25 08:01 | disposition home or self-care (01) | LOC: WOUND 08:00 | PROVIDERS: ATTEND Surgery | DX: L97.113 Non-pressure chronic ulcer of right thigh with necrosis of muscle (principal); M19.90 Unspecified osteoarthritis, unspecified site; F32.9 Major depressive disorder, single episode, unspecified; E05.90 Thyrotoxicosis, unspecified without thyrotoxic crisis or storm; Z90.710 Acquired absence of both cervix and uterus; Z96.641 Presence of right artificial hip joint | CPT/HCPCS: 97605 ==

== ENCOUNTER 2019-05-28 08:32 | Outpatient (CLI) | payer MEDICARE ==
[2019-05-28] MEDS ORDERED: LIDOCAINE (4%) 40 MG/ML TOPICAL SOLN 50 ML BOTTLE TP ONE (09:00)
== END 2019-05-28 08:33 | disposition home or self-care (01) ==
LOC: WOUND 08:32
PROVIDERS: ATTEND Surgery
DX: L98.491 Non-pressure chronic ulcer of skin of other sites limited to breakdown of skin (principal); L97.113 Non-pressure chronic ulcer of right thigh with necrosis of muscle; M19.90 Unspecified osteoarthritis, unspecified site; F32.9 Major depressive disorder, single episode, unspecified; E05.90 Thyrotoxicosis, unspecified without thyrotoxic crisis or storm; Z90.710 Acquired absence of both cervix and uterus; Z96.641 Presence of right artificial hip joint
CPT/HCPCS: 97605

== ENCOUNTER 2019-06-01 08:06 | Outpatient (CLI) | payer MEDICARE | END 2019-06-01 08:07 | disposition home or self-care (01) | LOC: WOUND 08:06 | PROVIDERS: ATTEND Surgery | DX: L98.491 Non-pressure chronic ulcer of skin of other sites limited to breakdown of skin (principal); L97.113 Non-pressure chronic ulcer of right thigh with necrosis of muscle; M19.90 Unspecified osteoarthritis, unspecified site; E05.90 Thyrotoxicosis, unspecified without thyrotoxic crisis or storm; F32.9 Major depressive disorder, single episode, unspecified; Z90.49 Acquired absence of other specified parts of digestive tract; Z96.641 Presence of right artificial hip joint | CPT/HCPCS: 97605 ==

== ENCOUNTER 2019-06-04 08:04 | Outpatient (CLI) | payer MEDICARE ==
[2019-06-04] MEDS ORDERED: LIDOCAINE (4%) 40 MG/ML TOPICAL SOLN 50 ML BOTTLE TP ONE (08:11)
== END 2019-06-04 08:05 | disposition home or self-care (01) ==
LOC: WOUND 08:04
PROVIDERS: ATTEND Surgery
DX: L97.113 Non-pressure chronic ulcer of right thigh with necrosis of muscle (principal); S71.001D Unspecified open wound, right hip, subsequent encounter; M19.90 Unspecified osteoarthritis, unspecified site; E05.90 Thyrotoxicosis, unspecified without thyrotoxic crisis or storm; F32.9 Major depressive disorder, single episode, unspecified; Z90.49 Acquired absence of other specified parts of digestive tract; Z96.641 Presence of right artificial hip joint; X58.XXXD Exposure to other specified factors, subsequent encounter
CPT/HCPCS: 97605

== ENCOUNTER 2019-06-11 08:05 | Outpatient (CLI) | payer MEDICARE ==
[2019-06-11] MEDS ORDERED: LIDOCAINE (4%) 40 MG/ML TOPICAL SOLN 50 ML BOTTLE TP ONE (08:30)
== END 2019-06-11 08:06 | disposition home or self-care (01) ==
LOC: WOUND 08:05
PROVIDERS: ATTEND Surgery
DX: L97.113 Non-pressure chronic ulcer of right thigh with necrosis of muscle (principal); S71.001D Unspecified open wound, right hip, subsequent encounter; M19.90 Unspecified osteoarthritis, unspecified site; E05.90 Thyrotoxicosis, unspecified without thyrotoxic crisis or storm; F32.9 Major depressive disorder, single episode, unspecified; Z90.49 Acquired absence of other specified parts of digestive tract; Z96.641 Presence of right artificial hip joint; X58.XXXD Exposure to other specified factors, subsequent encounter
CPT/HCPCS: 97605

== ENCOUNTER 2019-06-15 08:05 | Outpatient (CLI) | payer MEDICARE | END 2019-06-15 08:06 | disposition home or self-care (01) | LOC: WOUND 08:05 | PROVIDERS: ATTEND Surgery | DX: L97.113 Non-pressure chronic ulcer of right thigh with necrosis of muscle (principal); S71.001D Unspecified open wound, right hip, subsequent encounter; M19.90 Unspecified osteoarthritis, unspecified site; E05.90 Thyrotoxicosis, unspecified without thyrotoxic crisis or storm; F32.9 Major depressive disorder, single episode, unspecified; Z90.49 Acquired absence of other specified parts of digestive tract; Z96.641 Presence of right artificial hip joint; X58.XXXD Exposure to other specified factors, subsequent encounter | CPT/HCPCS: 97605 ==

== ENCOUNTER 2019-06-22 08:06 | Outpatient (CLI) | payer MEDICARE | END 2019-06-22 08:07 | disposition home or self-care (01) | LOC: WOUND 08:06 | PROVIDERS: ATTEND Surgery | DX: L97.113 Non-pressure chronic ulcer of right thigh with necrosis of muscle (principal); S71.001D Unspecified open wound, right hip, subsequent encounter; M19.90 Unspecified osteoarthritis, unspecified site; E05.90 Thyrotoxicosis, unspecified without thyrotoxic crisis or storm; F32.9 Major depressive disorder, single episode, unspecified; Z90.49 Acquired absence of other specified parts of digestive tract; Z96.641 Presence of right artificial hip joint; X58.XXXD Exposure to other specified factors, subsequent encounter | CPT/HCPCS: 97605 ==

== ENCOUNTER 2019-06-25 08:05 | Outpatient (CLI) | payer MEDICARE ==
[2019-06-25] MEDS ORDERED: LIDOCAINE (4%) 40 MG/ML TOPICAL SOLN 50 ML BOTTLE TP NR (09:00)
[2019-06-25] MEDS ORDERED: SILVER NITRATE APPLICATOR 1 EA TP SCH (10:30)
== END 2019-06-25 08:06 | disposition home or self-care (01) ==
LOC: WOUND 08:05
PROVIDERS: ATTEND Surgery
DX: L97.113 Non-pressure chronic ulcer of right thigh with necrosis of muscle (principal); S71.001D Unspecified open wound, right hip, subsequent encounter; E05.90 Thyrotoxicosis, unspecified without thyrotoxic crisis or storm; M19.90 Unspecified osteoarthritis, unspecified site; F32.9 Major depressive disorder, single episode, unspecified; Z90.49 Acquired absence of other specified parts of digestive tract; Z96.641 Presence of right artificial hip joint; X58.XXXD Exposure to other specified factors, subsequent encounter
CPT/HCPCS: 97605

== ENCOUNTER 2019-06-29 08:14 | Outpatient (CLI) | payer MEDICARE | END 2019-06-29 08:15 | disposition home or self-care (01) | LOC: WOUND 08:14 | PROVIDERS: ATTEND Surgery | DX: L97.113 Non-pressure chronic ulcer of right thigh with necrosis of muscle (principal); S71.001D Unspecified open wound, right hip, subsequent encounter; E05.90 Thyrotoxicosis, unspecified without thyrotoxic crisis or storm; M19.90 Unspecified osteoarthritis, unspecified site; F32.9 Major depressive disorder, single episode, unspecified; Z90.49 Acquired absence of other specified parts of digestive tract; Z96.641 Presence of right artificial hip joint; X58.XXXD Exposure to other specified factors, subsequent encounter | CPT/HCPCS: 97605 ==

== ENCOUNTER 2019-07-02 13:20 | Outpatient (CLI) | payer MEDICARE ==
[2019-07-02] MEDS ORDERED: LIDOCAINE (4%) 40 MG/ML TOPICAL SOLN 50 ML BOTTLE TP ONE (13:31)
[2019-07-02] MEDS ORDERED: SILVER NITRATE APPLICATOR 1 EA TP ONE (13:50)
== END 2019-07-02 13:21 | disposition home or self-care (01) ==
LOC: WOUND 13:20
PROVIDERS: ATTEND Surgery
DX: L97.113 Non-pressure chronic ulcer of right thigh with necrosis of muscle (principal); S71.001D Unspecified open wound, right hip, subsequent encounter; E05.90 Thyrotoxicosis, unspecified without thyrotoxic crisis or storm; M19.90 Unspecified osteoarthritis, unspecified site; F32.9 Major depressive disorder, single episode, unspecified; Z90.49 Acquired absence of other specified parts of digestive tract; Z96.641 Presence of right artificial hip joint; X58.XXXD Exposure to other specified factors, subsequent encounter

== ENCOUNTER 2019-07-06 08:02 | Outpatient (CLI) | payer MEDICARE | END 2019-07-06 08:03 | disposition home or self-care (01) | LOC: WOUND 08:02 | PROVIDERS: ATTEND Surgery | DX: L97.113 Non-pressure chronic ulcer of right thigh with necrosis of muscle (principal); S71.001D Unspecified open wound, right hip, subsequent encounter; E05.90 Thyrotoxicosis, unspecified without thyrotoxic crisis or storm; M19.90 Unspecified osteoarthritis, unspecified site; F32.9 Major depressive disorder, single episode, unspecified; Z90.49 Acquired absence of other specified parts of digestive tract; Z96.641 Presence of right artificial hip joint; X58.XXXD Exposure to other specified factors, subsequent encounter | CPT/HCPCS: 99213; G0463 ==

== ENCOUNTER 2019-07-09 08:03 | Outpatient (CLI) | payer MEDICARE ==
[2019-07-09] MEDS ORDERED: LIDOCAINE (4%) 40 MG/ML TOPICAL SOLN 50 ML BOTTLE TP ONE (08:30)
== END 2019-07-09 08:04 | disposition home or self-care (01) ==
LOC: WOUND 08:03
PROVIDERS: ATTEND Surgery
DX: L97.113 Non-pressure chronic ulcer of right thigh with necrosis of muscle (principal); S71.001D Unspecified open wound, right hip, subsequent encounter; E05.90 Thyrotoxicosis, unspecified without thyrotoxic crisis or storm; M19.90 Unspecified osteoarthritis, unspecified site; F32.9 Major depressive disorder, single episode, unspecified; Z90.49 Acquired absence of other specified parts of digestive tract; Z96.641 Presence of right artificial hip joint; X58.XXXD Exposure to other specified factors, subsequent encounter

== ENCOUNTER 2019-07-13 15:21 | Outpatient (CLI) | payer MEDICARE | END 2019-07-13 15:22 | disposition home or self-care (01) | LOC: WOUND 15:21 | PROVIDERS: ATTEND Surgery | DX: L97.113 Non-pressure chronic ulcer of right thigh with necrosis of muscle (principal); S71.001D Unspecified open wound, right hip, subsequent encounter; E05.90 Thyrotoxicosis, unspecified without thyrotoxic crisis or storm; M19.90 Unspecified osteoarthritis, unspecified site; F32.9 Major depressive disorder, single episode, unspecified; Z90.49 Acquired absence of other specified parts of digestive tract; Z96.641 Presence of right artificial hip joint; X58.XXXD Exposure to other specified factors, subsequent encounter | CPT/HCPCS: 99212; G0463 ==

== ENCOUNTER 2019-07-20 07:55 | Outpatient (CLI) | payer MEDICARE | END 2019-07-20 07:56 | disposition home or self-care (01) | LOC: WOUND 07:55 | PROVIDERS: ATTEND Surgery | DX: L97.113 Non-pressure chronic ulcer of right thigh with necrosis of muscle (principal); S71.001D Unspecified open wound, right hip, subsequent encounter; E05.90 Thyrotoxicosis, unspecified without thyrotoxic crisis or storm; M19.90 Unspecified osteoarthritis, unspecified site; F32.9 Major depressive disorder, single episode, unspecified; Z90.49 Acquired absence of other specified parts of digestive tract; Z96.641 Presence of right artificial hip joint; X58.XXXD Exposure to other specified factors, subsequent encounter | CPT/HCPCS: 99213; G0463 ==

== ENCOUNTER 2019-07-27 08:16 | Outpatient (CLI) | payer MEDICARE | END 2019-07-27 08:17 | disposition home or self-care (01) | LOC: WOUND 08:16 | PROVIDERS: ATTEND Surgery | DX: L97.113 Non-pressure chronic ulcer of right thigh with necrosis of muscle (principal); S71.001D Unspecified open wound, right hip, subsequent encounter; E05.90 Thyrotoxicosis, unspecified without thyrotoxic crisis or storm; M19.90 Unspecified osteoarthritis, unspecified site; F32.9 Major depressive disorder, single episode, unspecified; Z90.49 Acquired absence of other specified parts of digestive tract; Z96.641 Presence of right artificial hip joint; X58.XXXD Exposure to other specified factors, subsequent encounter | CPT/HCPCS: 99212; G0463 ==

== ENCOUNTER 2019-08-05 08:12 | Outpatient (CLI) | payer MEDICARE ==
[2019-08-05] MEDS ORDERED: LIDOCAINE (4%) 40 MG/ML TOPICAL SOLN 50 ML BOTTLE TP ONE (08:18)
== END 2019-08-05 08:13 | disposition home or self-care (01) ==
LOC: WOUND 08:12
PROVIDERS: ATTEND Surgery
DX: L97.113 Non-pressure chronic ulcer of right thigh with necrosis of muscle (principal); S71.001D Unspecified open wound, right hip, subsequent encounter; M19.90 Unspecified osteoarthritis, unspecified site; E05.90 Thyrotoxicosis, unspecified without thyrotoxic crisis or storm; F32.9 Major depressive disorder, single episode, unspecified; Z96.641 Presence of right artificial hip joint; Z90.710 Acquired absence of both cervix and uterus; X58.XXXD Exposure to other specified factors, subsequent encounter

== ENCOUNTER 2019-08-10 08:09 | Outpatient (CLI) | payer MEDICARE | END 2019-08-10 08:10 | disposition home or self-care (01) | LOC: WOUND 08:09 | PROVIDERS: ATTEND Surgery | DX: L97.113 Non-pressure chronic ulcer of right thigh with necrosis of muscle (principal); S71.001D Unspecified open wound, right hip, subsequent encounter; M19.90 Unspecified osteoarthritis, unspecified site; E05.90 Thyrotoxicosis, unspecified without thyrotoxic crisis or storm; F32.9 Major depressive disorder, single episode, unspecified; Z96.641 Presence of right artificial hip joint; Z90.710 Acquired absence of both cervix and uterus; X58.XXXD Exposure to other specified factors, subsequent encounter | CPT/HCPCS: 99212; G0463 ==

== ENCOUNTER 2019-08-12 08:11 | Outpatient (CLI) | payer MEDICARE ==
[2019-08-12] MEDS ORDERED: LIDOCAINE (4%) 40 MG/ML TOPICAL SOLN 50 ML BOTTLE TP ONE (08:30)
== END 2019-08-12 08:12 | disposition home or self-care (01) ==
LOC: WOUND 08:11
PROVIDERS: ATTEND Surgery
DX: L97.113 Non-pressure chronic ulcer of right thigh with necrosis of muscle (principal); S71.001D Unspecified open wound, right hip, subsequent encounter; M19.90 Unspecified osteoarthritis, unspecified site; E05.90 Thyrotoxicosis, unspecified without thyrotoxic crisis or storm; F32.9 Major depressive disorder, single episode, unspecified; Z96.641 Presence of right artificial hip joint; Z90.710 Acquired absence of both cervix and uterus; X58.XXXD Exposure to other specified factors, subsequent encounter

== ENCOUNTER 2019-08-17 08:07 | Outpatient (CLI) | payer MEDICARE | END 2019-08-17 08:08 | disposition home or self-care (01) | LOC: WOUND 08:07 | PROVIDERS: ATTEND Surgery | DX: L97.113 Non-pressure chronic ulcer of right thigh with necrosis of muscle (principal); S71.001D Unspecified open wound, right hip, subsequent encounter; M19.90 Unspecified osteoarthritis, unspecified site; E05.90 Thyrotoxicosis, unspecified without thyrotoxic crisis or storm; F32.9 Major depressive disorder, single episode, unspecified; Z96.641 Presence of right artificial hip joint; Z90.710 Acquired absence of both cervix and uterus | CPT/HCPCS: 99213; G0463 ==

== ENCOUNTER 2019-08-31 08:08 | Outpatient (CLI) | payer MEDICARE | END 2019-08-31 08:09 | disposition home or self-care (01) | LOC: WOUND 08:08 | PROVIDERS: ATTEND Surgery | DX: L97.113 Non-pressure chronic ulcer of right thigh with necrosis of muscle (principal); S71.001D Unspecified open wound, right hip, subsequent encounter; M19.90 Unspecified osteoarthritis, unspecified site; E05.90 Thyrotoxicosis, unspecified without thyrotoxic crisis or storm; F32.9 Major depressive disorder, single episode, unspecified; Z96.641 Presence of right artificial hip joint; Z90.710 Acquired absence of both cervix and uterus | CPT/HCPCS: 99212; G0463 ==

== ENCOUNTER 2019-09-02 08:16 | Outpatient (CLI) | payer MEDICARE ==
[2019-09-02] MEDS ORDERED: LIDOCAINE (4%) 40 MG/ML TOPICAL SOLN 50 ML BOTTLE TP ONE (08:21)
== END 2019-09-02 08:17 | disposition home or self-care (01) ==
LOC: WOUND 08:16
PROVIDERS: ATTEND Surgery
DX: S71.001D Unspecified open wound, right hip, subsequent encounter (principal); L97.113 Non-pressure chronic ulcer of right thigh with necrosis of muscle; E05.90 Thyrotoxicosis, unspecified without thyrotoxic crisis or storm; M19.90 Unspecified osteoarthritis, unspecified site; F32.9 Major depressive disorder, single episode, unspecified; Z96.641 Presence of right artificial hip joint; Z90.710 Acquired absence of both cervix and uterus; X58.XXXD Exposure to other specified factors, subsequent encounter

== ENCOUNTER 2019-09-08 09:52 | Outpatient (CLI) | payer MEDICARE ==
[2019-09-08] MEDS ORDERED: LIDOCAINE (4%) 40 MG/ML TOPICAL SOLN 50 ML BOTTLE TP ONE (11:00)
== END 2019-09-08 09:53 | disposition home or self-care (01) ==
LOC: WOUND 09:52
PROVIDERS: ATTEND Surgery
DX: L97.113 Non-pressure chronic ulcer of right thigh with necrosis of muscle (principal); S71.001D Unspecified open wound, right hip, subsequent encounter; E05.90 Thyrotoxicosis, unspecified without thyrotoxic crisis or storm; M19.90 Unspecified osteoarthritis, unspecified site; F32.9 Major depressive disorder, single episode, unspecified; Z96.641 Presence of right artificial hip joint; Z90.710 Acquired absence of both cervix and uterus; X58.XXXD Exposure to other specified factors, subsequent encounter

== ENCOUNTER 2019-09-16 09:27 | Outpatient (CLI) | payer MEDICARE ==
[2019-09-16] MEDS ORDERED: LIDOCAINE (4%) 40 MG/ML TOPICAL SOLN 50 ML BOTTLE TP ONE (10:00)
== END 2019-09-16 09:28 | disposition home or self-care (01) ==
LOC: WOUND 09:27
PROVIDERS: ATTEND Surgery
DX: S71.001D Unspecified open wound, right hip, subsequent encounter (principal); L97.113 Non-pressure chronic ulcer of right thigh with necrosis of muscle; E03.9 Hypothyroidism, unspecified; M19.90 Unspecified osteoarthritis, unspecified site; F32.9 Major depressive disorder, single episode, unspecified; Z96.641 Presence of right artificial hip joint; Z90.49 Acquired absence of other specified parts of digestive tract; X58.XXXD Exposure to other specified factors, subsequent encounter

== ENCOUNTER 2019-09-23 08:09 | Outpatient (CLI) | payer MEDICARE ==
[2019-09-23] MEDS ORDERED: LIDOCAINE (4%) 40 MG/ML TOPICAL SOLN 50 ML BOTTLE TP ONE (08:11)
== END 2019-09-23 08:10 | disposition home or self-care (01) ==
LOC: WOUND 08:09
PROVIDERS: ATTEND Surgery
DX: T84.89XD Other specified complication of internal orthopedic prosthetic devices, implants and grafts, subsequent encounter (principal); L97.113 Non-pressure chronic ulcer of right thigh with necrosis of muscle; E03.9 Hypothyroidism, unspecified; M19.90 Unspecified osteoarthritis, unspecified site; F32.9 Major depressive disorder, single episode, unspecified; Z96.641 Presence of right artificial hip joint; Z90.49 Acquired absence of other specified parts of digestive tract; Y83.2 Surgical operation with anastomosis, bypass or graft as the cause of abnormal reaction of the patient, or of later complication, without mention of misadventure at the time of the procedure

== ENCOUNTER 2019-09-30 08:05 | Outpatient (CLI) | payer MEDICARE ==
[2019-09-30] MEDS ORDERED: LIDOCAINE (4%) 40 MG/ML TOPICAL SOLN 50 ML BOTTLE TP ONE (08:09)
== END 2019-09-30 08:06 | disposition home or self-care (01) ==
LOC: WOUND 08:05
PROVIDERS: ATTEND Surgery
DX: S71.001D Unspecified open wound, right hip, subsequent encounter (principal); L97.113 Non-pressure chronic ulcer of right thigh with necrosis of muscle; E03.9 Hypothyroidism, unspecified; M19.90 Unspecified osteoarthritis, unspecified site; F32.9 Major depressive disorder, single episode, unspecified; Z96.641 Presence of right artificial hip joint; Z90.49 Acquired absence of other specified parts of digestive tract; X58.XXXD Exposure to other specified factors, subsequent encounter

== ENCOUNTER 2019-10-12 08:08 | Outpatient (CLI) | payer MEDICARE | END 2019-10-12 08:09 | disposition home or self-care (01) | LOC: WOUND 08:08 | PROVIDERS: ATTEND Surgery | DX: S71.001D Unspecified open wound, right hip, subsequent encounter (principal); L97.113 Non-pressure chronic ulcer of right thigh with necrosis of muscle; E05.90 Thyrotoxicosis, unspecified without thyrotoxic crisis or storm; M19.90 Unspecified osteoarthritis, unspecified site; F32.9 Major depressive disorder, single episode, unspecified; Z96.641 Presence of right artificial hip joint; Z90.49 Acquired absence of other specified parts of digestive tract; X58.XXXD Exposure to other specified factors, subsequent encounter | CPT/HCPCS: 99213; G0463 ==

== ENCOUNTER 2019-10-14 08:04 | Outpatient (CLI) | payer MEDICARE ==
[2019-10-14] MEDS ORDERED: LIDOCAINE (4%) 40 MG/ML TOPICAL SOLN 50 ML BOTTLE TP ONE (08:30)
== END 2019-10-14 08:05 | disposition home or self-care (01) ==
LOC: WOUND 08:04
PROVIDERS: ATTEND Surgery
DX: S71.001D Unspecified open wound, right hip, subsequent encounter (principal); L97.113 Non-pressure chronic ulcer of right thigh with necrosis of muscle; E05.90 Thyrotoxicosis, unspecified without thyrotoxic crisis or storm; M19.90 Unspecified osteoarthritis, unspecified site; F32.9 Major depressive disorder, single episode, unspecified; Z96.641 Presence of right artificial hip joint; Z90.49 Acquired absence of other specified parts of digestive tract; X58.XXXD Exposure to other specified factors, subsequent encounter

== ENCOUNTER 2019-10-21 08:05 | Outpatient (CLI) | payer MEDICARE ==
[2019-10-21] MEDS ORDERED: LIDOCAINE (4%) 40 MG/ML TOPICAL SOLN 50 ML BOTTLE TP ONE (08:30)
== END 2019-10-21 08:06 | disposition home or self-care (01) ==
LOC: WOUND 08:05
PROVIDERS: ATTEND Surgery
DX: S71.001D Unspecified open wound, right hip, subsequent encounter (principal); L97.113 Non-pressure chronic ulcer of right thigh with necrosis of muscle; E05.90 Thyrotoxicosis, unspecified without thyrotoxic crisis or storm; M19.90 Unspecified osteoarthritis, unspecified site; F32.9 Major depressive disorder, single episode, unspecified; Z96.641 Presence of right artificial hip joint; Z90.49 Acquired absence of other specified parts of digestive tract; X58.XXXD Exposure to other specified factors, subsequent encounter

== ENCOUNTER 2019-10-28 08:04 | Outpatient (CLI) | payer MEDICARE ==
[2019-10-28] MEDS ORDERED: LIDOCAINE (4%) 40 MG/ML TOPICAL SOLN 50 ML BOTTLE TP ONE (08:10)
== END 2019-10-28 08:05 | disposition home or self-care (01) ==
LOC: WOUND 08:04
PROVIDERS: ATTEND Surgery
DX: S71.001D Unspecified open wound, right hip, subsequent encounter (principal); L97.113 Non-pressure chronic ulcer of right thigh with necrosis of muscle; E03.9 Hypothyroidism, unspecified; M19.90 Unspecified osteoarthritis, unspecified site; F32.9 Major depressive disorder, single episode, unspecified; Z96.641 Presence of right artificial hip joint; Z90.49 Acquired absence of other specified parts of digestive tract; X58.XXXD Exposure to other specified factors, subsequent encounter

== ENCOUNTER 2019-11-04 08:07 | Outpatient (CLI) | payer MEDICARE ==
[2019-11-04] MEDS ORDERED: LIDOCAINE (4%) 40 MG/ML TOPICAL SOLN 50 ML BOTTLE TP ONE (08:10)
== END 2019-11-04 08:08 | disposition home or self-care (01) ==
LOC: WOUND 08:07
PROVIDERS: ATTEND Surgery
DX: S71.001D Unspecified open wound, right hip, subsequent encounter (principal); L97.113 Non-pressure chronic ulcer of right thigh with necrosis of muscle; M19.90 Unspecified osteoarthritis, unspecified site; E05.90 Thyrotoxicosis, unspecified without thyrotoxic crisis or storm; F32.9 Major depressive disorder, single episode, unspecified; Z96.641 Presence of right artificial hip joint; Z90.49 Acquired absence of other specified parts of digestive tract; Z90.710 Acquired absence of both cervix and uterus; X58.XXXD Exposure to other specified factors, subsequent encounter

== ENCOUNTER 2019-11-11 08:09 | Outpatient (CLI) | payer MEDICARE ==
[2019-11-11] MEDS ORDERED: LIDOCAINE (4%) 40 MG/ML TOPICAL SOLN 50 ML BOTTLE TP ONE (08:18)
== END 2019-11-11 08:10 | disposition home or self-care (01) ==
LOC: WOUND 08:09
PROVIDERS: ATTEND Surgery
DX: S71.001D Unspecified open wound, right hip, subsequent encounter (principal); L97.113 Non-pressure chronic ulcer of right thigh with necrosis of muscle; M19.90 Unspecified osteoarthritis, unspecified site; E05.90 Thyrotoxicosis, unspecified without thyrotoxic crisis or storm; F32.9 Major depressive disorder, single episode, unspecified; Z96.641 Presence of right artificial hip joint; Z90.710 Acquired absence of both cervix and uterus; X58.XXXD Exposure to other specified factors, subsequent encounter

== ENCOUNTER 2019-11-18 08:05 | Outpatient (CLI) | payer MEDICARE ==
[2019-11-18] MEDS ORDERED: LIDOCAINE (4%) 40 MG/ML TOPICAL SOLN 50 ML BOTTLE TP ONE (08:30)
== END 2019-11-18 08:06 | disposition home or self-care (01) ==
LOC: WOUND 08:05
PROVIDERS: ATTEND Surgery
DX: S71.001D Unspecified open wound, right hip, subsequent encounter (principal); L97.113 Non-pressure chronic ulcer of right thigh with necrosis of muscle; M19.90 Unspecified osteoarthritis, unspecified site; E05.90 Thyrotoxicosis, unspecified without thyrotoxic crisis or storm; F32.9 Major depressive disorder, single episode, unspecified; Z96.641 Presence of right artificial hip joint; Z90.710 Acquired absence of both cervix and uterus; X58.XXXD Exposure to other specified factors, subsequent encounter

== ENCOUNTER 2019-11-25 08:04 | Outpatient (CLI) | payer MEDICARE ==
[2019-11-25] MEDS ORDERED: LIDOCAINE (4%) 40 MG/ML TOPICAL SOLN 50 ML BOTTLE TP ONE (08:06)
== END 2019-11-25 08:05 | disposition home or self-care (01) ==
LOC: WOUND 08:04
PROVIDERS: ATTEND Surgery
DX: S71.001D Unspecified open wound, right hip, subsequent encounter (principal); L97.113 Non-pressure chronic ulcer of right thigh with necrosis of muscle; M19.90 Unspecified osteoarthritis, unspecified site; E05.90 Thyrotoxicosis, unspecified without thyrotoxic crisis or storm; F32.9 Major depressive disorder, single episode, unspecified; Z96.641 Presence of right artificial hip joint; Z90.710 Acquired absence of both cervix and uterus; X58.XXXD Exposure to other specified factors, subsequent encounter

== ENCOUNTER 2019-12-09 08:01 | Outpatient (CLI) | payer MEDICARE ==
[2019-12-09] MEDS ORDERED: LIDOCAINE (4%) 40 MG/ML TOPICAL SOLN 50 ML BOTTLE TP ONE (09:00)
== END 2019-12-09 08:02 | disposition home or self-care (01) ==
LOC: WOUND 08:01
PROVIDERS: ATTEND Surgery
DX: S71.001D Unspecified open wound, right hip, subsequent encounter (principal); L97.113 Non-pressure chronic ulcer of right thigh with necrosis of muscle; M19.90 Unspecified osteoarthritis, unspecified site; E05.90 Thyrotoxicosis, unspecified without thyrotoxic crisis or storm; F32.9 Major depressive disorder, single episode, unspecified; Z96.641 Presence of right artificial hip joint; Z90.710 Acquired absence of both cervix and uterus; X58.XXXD Exposure to other specified factors, subsequent encounter

== ENCOUNTER 2019-12-16 08:05 | Outpatient (CLI) | payer MEDICARE ==
[2019-12-16] MEDS ORDERED: LIDOCAINE (4%) 40 MG/ML TOPICAL SOLN 50 ML BOTTLE TP ONE (08:10)
== END 2019-12-16 08:06 | disposition home or self-care (01) ==
LOC: WOUND 08:05
PROVIDERS: ATTEND Surgery
DX: L97.113 Non-pressure chronic ulcer of right thigh with necrosis of muscle (principal); M19.90 Unspecified osteoarthritis, unspecified site; I10 Essential (primary) hypertension; E05.90 Thyrotoxicosis, unspecified without thyrotoxic crisis or storm; F32.9 Major depressive disorder, single episode, unspecified; Z96.641 Presence of right artificial hip joint; Z90.710 Acquired absence of both cervix and uterus

== ENCOUNTER 2019-12-23 08:07 | Outpatient (CLI) | payer MEDICARE ==
[2019-12-23] MEDS ORDERED: LIDOCAINE (4%) 40 MG/ML TOPICAL SOLN 50 ML BOTTLE TP NR (08:10)
== END 2019-12-23 08:08 | disposition home or self-care (01) ==
LOC: WOUND 08:07
PROVIDERS: ATTEND Surgery
DX: L97.113 Non-pressure chronic ulcer of right thigh with necrosis of muscle (principal); M19.90 Unspecified osteoarthritis, unspecified site; I10 Essential (primary) hypertension; E05.90 Thyrotoxicosis, unspecified without thyrotoxic crisis or storm; F32.9 Major depressive disorder, single episode, unspecified; Z96.641 Presence of right artificial hip joint; Z90.710 Acquired absence of both cervix and uterus

== ENCOUNTER 2019-12-30 08:04 | Outpatient (CLI) | payer MEDICARE ==
[2019-12-30] MEDS ORDERED: LIDOCAINE (4%) 40 MG/ML TOPICAL SOLN 50 ML BOTTLE TP SCH (08:06)
== END 2019-12-30 08:05 | disposition home or self-care (01) ==
LOC: WOUND 08:04
PROVIDERS: ATTEND Surgery
DX: L97.113 Non-pressure chronic ulcer of right thigh with necrosis of muscle (principal); M19.90 Unspecified osteoarthritis, unspecified site; I10 Essential (primary) hypertension; E05.90 Thyrotoxicosis, unspecified without thyrotoxic crisis or storm; F32.9 Major depressive disorder, single episode, unspecified; Z96.641 Presence of right artificial hip joint; Z90.710 Acquired absence of both cervix and uterus

== ENCOUNTER 2020-01-06 08:11 | Outpatient (CLI) | payer MEDICARE ==
[2020-01-06] MEDS ORDERED: LIDOCAINE (4%) 40 MG/ML TOPICAL SOLN 50 ML BOTTLE TP SCH (08:18)
== END 2020-01-06 08:12 | disposition home or self-care (01) ==
LOC: WOUND 08:11
PROVIDERS: ATTEND Surgery
DX: L97.113 Non-pressure chronic ulcer of right thigh with necrosis of muscle (principal); M19.90 Unspecified osteoarthritis, unspecified site; I10 Essential (primary) hypertension; E05.90 Thyrotoxicosis, unspecified without thyrotoxic crisis or storm; F32.9 Major depressive disorder, single episode, unspecified; Z96.641 Presence of right artificial hip joint; Z90.710 Acquired absence of both cervix and uterus

== ENCOUNTER 2020-01-13 08:04 | Outpatient (CLI) | payer MEDICARE ==
[2020-01-13] MEDS ORDERED: LIDOCAINE (4%) 40 MG/ML TOPICAL SOLN 50 ML BOTTLE TP ONE (08:12)
== END 2020-01-13 08:05 | disposition home or self-care (01) ==
LOC: WOUND 08:04
PROVIDERS: ATTEND Surgery
DX: S71.001D Unspecified open wound, right hip, subsequent encounter (principal); L97.113 Non-pressure chronic ulcer of right thigh with necrosis of muscle; M19.90 Unspecified osteoarthritis, unspecified site; E05.90 Thyrotoxicosis, unspecified without thyrotoxic crisis or storm; F32.9 Major depressive disorder, single episode, unspecified; Z96.641 Presence of right artificial hip joint; Z90.710 Acquired absence of both cervix and uterus; X58.XXXD Exposure to other specified factors, subsequent encounter

== ENCOUNTER 2020-01-20 08:07 | Outpatient (CLI) | payer MEDICARE ==
[2020-01-20] MEDS ORDERED: LIDOCAINE (4%) 40 MG/ML TOPICAL SOLN 50 ML BOTTLE TP SCH (08:30)
== END 2020-01-20 08:08 | disposition home or self-care (01) ==
LOC: WOUND 08:07
PROVIDERS: ATTEND Surgery
DX: S71.001D Unspecified open wound, right hip, subsequent encounter (principal); L97.113 Non-pressure chronic ulcer of right thigh with necrosis of muscle; M19.90 Unspecified osteoarthritis, unspecified site; E05.90 Thyrotoxicosis, unspecified without thyrotoxic crisis or storm; F32.9 Major depressive disorder, single episode, unspecified; Z96.641 Presence of right artificial hip joint; Z90.710 Acquired absence of both cervix and uterus; X58.XXXD Exposure to other specified factors, subsequent encounter

== ENCOUNTER 2020-01-27 08:11 | Outpatient (CLI) | payer MEDICARE ==
[2020-01-27] MEDS ORDERED: LIDOCAINE (4%) 40 MG/ML TOPICAL SOLN 50 ML BOTTLE TP SCH (08:30)
== END 2020-01-27 08:12 | disposition home or self-care (01) ==
LOC: WOUND 08:11
PROVIDERS: ATTEND Surgery
DX: S71.001D Unspecified open wound, right hip, subsequent encounter (principal); L97.113 Non-pressure chronic ulcer of right thigh with necrosis of muscle; M19.90 Unspecified osteoarthritis, unspecified site; E05.90 Thyrotoxicosis, unspecified without thyrotoxic crisis or storm; F32.9 Major depressive disorder, single episode, unspecified; Z96.641 Presence of right artificial hip joint; Z90.710 Acquired absence of both cervix and uterus; X58.XXXD Exposure to other specified factors, subsequent encounter

== ENCOUNTER 2020-02-03 08:06 | Outpatient (CLI) | payer MEDICARE ==
[2020-02-03] MEDS ORDERED: LIDOCAINE (4%) 40 MG/ML TOPICAL SOLN 50 ML BOTTLE TP ONE (08:30)
== END 2020-02-03 08:07 | disposition home or self-care (01) ==
LOC: WOUND 08:06
PROVIDERS: ATTEND Surgery
DX: S71.001D Unspecified open wound, right hip, subsequent encounter (principal); L97.113 Non-pressure chronic ulcer of right thigh with necrosis of muscle; M19.90 Unspecified osteoarthritis, unspecified site; E05.90 Thyrotoxicosis, unspecified without thyrotoxic crisis or storm; F32.9 Major depressive disorder, single episode, unspecified; Z96.641 Presence of right artificial hip joint; Z90.710 Acquired absence of both cervix and uterus; X58.XXXD Exposure to other specified factors, subsequent encounter

== ENCOUNTER 2020-02-10 08:05 | Outpatient (CLI) | payer MEDICARE ==
[2020-02-10] MEDS ORDERED: LIDOCAINE (4%) 40 MG/ML TOPICAL SOLN 50 ML BOTTLE TP ONE (08:28)
== END 2020-02-10 08:06 | disposition home or self-care (01) ==
LOC: WOUND 08:05
PROVIDERS: ATTEND Surgery
DX: S71.001D Unspecified open wound, right hip, subsequent encounter (principal); L97.113 Non-pressure chronic ulcer of right thigh with necrosis of muscle; M19.90 Unspecified osteoarthritis, unspecified site; E05.90 Thyrotoxicosis, unspecified without thyrotoxic crisis or storm; F32.9 Major depressive disorder, single episode, unspecified; Z96.641 Presence of right artificial hip joint; Z90.710 Acquired absence of both cervix and uterus; X58.XXXD Exposure to other specified factors, subsequent encounter

== ENCOUNTER 2020-02-17 07:57 | Outpatient (CLI) | payer MEDICARE ==
[2020-02-17] MEDS ORDERED: LIDOCAINE (4%) 40 MG/ML TOPICAL SOLN 50 ML BOTTLE TP SCH (08:00)
== END 2020-02-17 07:58 | disposition home or self-care (01) ==
LOC: WOUND 07:57
PROVIDERS: ATTEND Surgery
DX: S71.001D Unspecified open wound, right hip, subsequent encounter (principal); L97.113 Non-pressure chronic ulcer of right thigh with necrosis of muscle; M19.90 Unspecified osteoarthritis, unspecified site; E05.90 Thyrotoxicosis, unspecified without thyrotoxic crisis or storm; F32.9 Major depressive disorder, single episode, unspecified; Z96.641 Presence of right artificial hip joint; Z90.710 Acquired absence of both cervix and uterus; X58.XXXD Exposure to other specified factors, subsequent encounter

== ENCOUNTER 2020-02-25 08:05 | Outpatient (CLI) | payer MEDICARE ==
[2020-02-25] MEDS ORDERED: LIDOCAINE (4%) 40 MG/ML TOPICAL SOLN 50 ML BOTTLE TP SCH (08:30)
== END 2020-02-25 08:06 | disposition home or self-care (01) ==
LOC: WOUND 08:05
PROVIDERS: ATTEND Surgery
DX: S71.001D Unspecified open wound, right hip, subsequent encounter (principal); L97.113 Non-pressure chronic ulcer of right thigh with necrosis of muscle; M19.90 Unspecified osteoarthritis, unspecified site; E05.90 Thyrotoxicosis, unspecified without thyrotoxic crisis or storm; F32.9 Major depressive disorder, single episode, unspecified; Z96.641 Presence of right artificial hip joint; Z90.710 Acquired absence of both cervix and uterus; X58.XXXD Exposure to other specified factors, subsequent encounter

== ENCOUNTER 2020-03-09 08:05 | Outpatient (CLI) | payer MEDICARE ==
[2020-03-09] MEDS ORDERED: LIDOCAINE (4%) 40 MG/ML TOPICAL SOLN 50 ML BOTTLE TP ONE (08:23)
== END 2020-03-09 08:06 | disposition home or self-care (01) ==
LOC: WOUND 08:05
PROVIDERS: ATTEND Surgery
DX: S71.001D Unspecified open wound, right hip, subsequent encounter (principal); L97.113 Non-pressure chronic ulcer of right thigh with necrosis of muscle; M19.90 Unspecified osteoarthritis, unspecified site; E05.90 Thyrotoxicosis, unspecified without thyrotoxic crisis or storm; F32.9 Major depressive disorder, single episode, unspecified; Z96.641 Presence of right artificial hip joint; Z90.710 Acquired absence of both cervix and uterus; X58.XXXD Exposure to other specified factors, subsequent encounter

== ENCOUNTER 2020-03-16 08:05 | Outpatient (CLI) | payer MEDICARE ==
[2020-03-16] MEDS ORDERED: LIDOCAINE (4%) 40 MG/ML TOPICAL SOLN 50 ML BOTTLE TP ONE (08:10)
== END 2020-03-16 08:06 | disposition home or self-care (01) ==
LOC: WOUND 08:05
PROVIDERS: ATTEND Surgery
DX: S71.001D Unspecified open wound, right hip, subsequent encounter (principal); L97.113 Non-pressure chronic ulcer of right thigh with necrosis of muscle; M19.90 Unspecified osteoarthritis, unspecified site; E05.90 Thyrotoxicosis, unspecified without thyrotoxic crisis or storm; F32.9 Major depressive disorder, single episode, unspecified; Z96.641 Presence of right artificial hip joint; Z90.710 Acquired absence of both cervix and uterus; X58.XXXD Exposure to other specified factors, subsequent encounter

== ENCOUNTER 2020-03-30 08:04 | Outpatient (CLI) | payer MEDICARE ==
[~2020-03-30 08:04] MED LIST: LIDOCAINE (4%) 40 MG/ML TOPICAL SOLN 50 ML BOTTLE TP SCH
== END 2020-03-30 08:05 | disposition home or self-care (01) ==
LOC: WOUND 08:04
PROVIDERS: ATTEND Surgery
DX: S71.001D Unspecified open wound, right hip, subsequent encounter (principal); L97.113 Non-pressure chronic ulcer of right thigh with necrosis of muscle; M19.90 Unspecified osteoarthritis, unspecified site; E05.90 Thyrotoxicosis, unspecified without thyrotoxic crisis or storm; F32.9 Major depressive disorder, single episode, unspecified; Z96.641 Presence of right artificial hip joint; Z90.710 Acquired absence of both cervix and uterus; X58.XXXD Exposure to other specified factors, subsequent encounter

== ENCOUNTER 2020-04-06 08:09 | Outpatient (CLI) | payer MEDICARE ==
[2020-04-06] MEDS ORDERED: LIDOCAINE (4%) 40 MG/ML TOPICAL SOLN 50 ML BOTTLE TP ONE (08:17)
== END 2020-04-06 08:10 | disposition home or self-care (01) ==
LOC: WOUND 08:09
PROVIDERS: ATTEND Surgery
DX: S71.001D Unspecified open wound, right hip, subsequent encounter (principal); L97.113 Non-pressure chronic ulcer of right thigh with necrosis of muscle; M19.90 Unspecified osteoarthritis, unspecified site; E05.90 Thyrotoxicosis, unspecified without thyrotoxic crisis or storm; F32.9 Major depressive disorder, single episode, unspecified; Z96.641 Presence of right artificial hip joint; Z90.710 Acquired absence of both cervix and uterus; X58.XXXD Exposure to other specified factors, subsequent encounter

== ENCOUNTER 2020-04-13 08:13 | Outpatient (CLI) | payer MEDICARE ==
[2020-04-13] MEDS ORDERED: LIDOCAINE (4%) 40 MG/ML TOPICAL SOLN 50 ML BOTTLE TP ONE (08:16)
== END 2020-04-13 08:14 | disposition home or self-care (01) ==
LOC: WOUND 08:13
PROVIDERS: ATTEND Surgery
DX: S71.001D Unspecified open wound, right hip, subsequent encounter (principal); L97.113 Non-pressure chronic ulcer of right thigh with necrosis of muscle; M19.90 Unspecified osteoarthritis, unspecified site; E05.90 Thyrotoxicosis, unspecified without thyrotoxic crisis or storm; F32.9 Major depressive disorder, single episode, unspecified; Z96.641 Presence of right artificial hip joint; Z90.710 Acquired absence of both cervix and uterus; X58.XXXD Exposure to other specified factors, subsequent encounter

== ENCOUNTER 2020-04-20 08:04 | Outpatient (CLI) | payer MEDICARE ==
[2020-04-20] MEDS ORDERED: LIDOCAINE (4%) 40 MG/ML TOPICAL SOLN 50 ML BOTTLE TP ONE (08:07)
[2020-04-20] MEDS ORDERED: LIDOCAINE 1%/EPINEPHRINE 1:100,000 VIAL (20 ML) INFILTRATI ONE (08:41)
[2020-04-20] MEDS ORDERED: SILVER NITRATE APPLICATOR 1 EA TP ONE (08:41)
== END 2020-04-20 08:05 | disposition home or self-care (01) ==
LOC: WOUND 08:04
PROVIDERS: ATTEND Surgery
DX: S71.001D Unspecified open wound, right hip, subsequent encounter (principal); L97.113 Non-pressure chronic ulcer of right thigh with necrosis of muscle; M19.90 Unspecified osteoarthritis, unspecified site; E05.90 Thyrotoxicosis, unspecified without thyrotoxic crisis or storm; F32.9 Major depressive disorder, single episode, unspecified; Z96.641 Presence of right artificial hip joint; Z90.710 Acquired absence of both cervix and uterus; X58.XXXD Exposure to other specified factors, subsequent encounter
CPT/HCPCS: 10060; 87075; 87076; 87116; 87186

== ENCOUNTER 2020-04-27 08:03 | Outpatient (CLI) | payer MEDICARE ==
[2020-04-27] MEDS ORDERED: LIDOCAINE (4%) 40 MG/ML TOPICAL SOLN 50 ML BOTTLE TP ONE (08:10)
== END 2020-04-27 08:04 | disposition home or self-care (01) ==
LOC: WOUND 08:03
PROVIDERS: ATTEND Surgery
DX: S71.001D Unspecified open wound, right hip, subsequent encounter (principal); L97.113 Non-pressure chronic ulcer of right thigh with necrosis of muscle; M19.90 Unspecified osteoarthritis, unspecified site; E05.90 Thyrotoxicosis, unspecified without thyrotoxic crisis or storm; F32.9 Major depressive disorder, single episode, unspecified; Z96.641 Presence of right artificial hip joint; Z90.710 Acquired absence of both cervix and uterus; X58.XXXD Exposure to other specified factors, subsequent encounter

== ENCOUNTER 2020-05-04 08:06 | Outpatient (CLI) | payer MEDICARE ==
[2020-05-04] MEDS ORDERED: LIDOCAINE (4%) 40 MG/ML TOPICAL SOLN 50 ML BOTTLE TP ONE (08:18)
== END 2020-05-04 08:07 | disposition home or self-care (01) ==
LOC: WOUND 08:06
PROVIDERS: ATTEND Surgery
DX: S71.001D Unspecified open wound, right hip, subsequent encounter (principal); L97.113 Non-pressure chronic ulcer of right thigh with necrosis of muscle; M19.90 Unspecified osteoarthritis, unspecified site; E05.90 Thyrotoxicosis, unspecified without thyrotoxic crisis or storm; F32.9 Major depressive disorder, single episode, unspecified; Z96.641 Presence of right artificial hip joint; Z90.710 Acquired absence of both cervix and uterus; Z79.82 Long term (current) use of aspirin; X58.XXXD Exposure to other specified factors, subsequent encounter

== ENCOUNTER 2020-05-06 08:30 | Outpatient (CLI) | payer MEDICARE | END 2020-05-06 08:31 | disposition home or self-care (01) | LOC: WOUND 08:30 | PROVIDERS: ATTEND Surgery | DX: S71.001D Unspecified open wound, right hip, subsequent encounter (principal); L97.113 Non-pressure chronic ulcer of right thigh with necrosis of muscle; M19.90 Unspecified osteoarthritis, unspecified site; E05.90 Thyrotoxicosis, unspecified without thyrotoxic crisis or storm; F32.9 Major depressive disorder, single episode, unspecified; Z96.641 Presence of right artificial hip joint; Z90.710 Acquired absence of both cervix and uterus; Z79.82 Long term (current) use of aspirin; X58.XXXD Exposure to other specified factors, subsequent encounter | CPT/HCPCS: 97605 ==

== ENCOUNTER 2020-05-11 08:06 | Outpatient (CLI) | payer MEDICARE ==
[2020-05-11] MEDS ORDERED: LIDOCAINE (4%) 40 MG/ML TOPICAL SOLN 50 ML BOTTLE TP SCH (08:30)
== END 2020-05-11 08:07 | disposition home or self-care (01) ==
LOC: WOUND 08:06
PROVIDERS: ATTEND Surgery
DX: S71.001D Unspecified open wound, right hip, subsequent encounter (principal); L97.113 Non-pressure chronic ulcer of right thigh with necrosis of muscle; M19.90 Unspecified osteoarthritis, unspecified site; E05.90 Thyrotoxicosis, unspecified without thyrotoxic crisis or storm; F32.9 Major depressive disorder, single episode, unspecified; Z96.641 Presence of right artificial hip joint; Z90.710 Acquired absence of both cervix and uterus; Z79.82 Long term (current) use of aspirin; X58.XXXD Exposure to other specified factors, subsequent encounter
CPT/HCPCS: 97605

== ENCOUNTER 2020-05-18 08:06 | Outpatient (CLI) | payer MEDICARE ==
[2020-05-18] MEDS ORDERED: SILVER NITRATE APPLICATOR 1 EA TP ONE (08:23)
[2020-05-18] MEDS ORDERED: LIDOCAINE (4%) 40 MG/ML TOPICAL SOLN 50 ML BOTTLE TP ONE (08:23)
== END 2020-05-18 08:07 | disposition home or self-care (01) ==
LOC: WOUND 08:06
PROVIDERS: ATTEND Surgery
DX: S71.001D Unspecified open wound, right hip, subsequent encounter (principal); L97.113 Non-pressure chronic ulcer of right thigh with necrosis of muscle; M19.90 Unspecified osteoarthritis, unspecified site; E05.90 Thyrotoxicosis, unspecified without thyrotoxic crisis or storm; F32.9 Major depressive disorder, single episode, unspecified; Z96.641 Presence of right artificial hip joint; Z90.710 Acquired absence of both cervix and uterus; Z79.82 Long term (current) use of aspirin; X58.XXXD Exposure to other specified factors, subsequent encounter
CPT/HCPCS: 97605

== ENCOUNTER 2020-05-25 08:07 | Outpatient (CLI) | payer MEDICARE ==
[2020-05-25] MEDS ORDERED: LIDOCAINE (4%) 40 MG/ML TOPICAL SOLN 50 ML BOTTLE TP ONE (08:12)
== END 2020-05-25 08:08 | disposition home or self-care (01) ==
LOC: WOUND 08:07
PROVIDERS: ATTEND Surgery
DX: S71.001D Unspecified open wound, right hip, subsequent encounter (principal); L97.113 Non-pressure chronic ulcer of right thigh with necrosis of muscle; M19.90 Unspecified osteoarthritis, unspecified site; E05.90 Thyrotoxicosis, unspecified without thyrotoxic crisis or storm; F32.9 Major depressive disorder, single episode, unspecified; Z96.641 Presence of right artificial hip joint; Z90.710 Acquired absence of both cervix and uterus; Z79.82 Long term (current) use of aspirin; X58.XXXD Exposure to other specified factors, subsequent encounter
CPT/HCPCS: 97605

== ENCOUNTER 2020-06-01 08:04 | Outpatient (CLI) | payer MEDICARE ==
[2020-06-01] MEDS ORDERED: LIDOCAINE (4%) 40 MG/ML TOPICAL SOLN 50 ML BOTTLE TP ONE (08:05)
[2020-06-01] MEDS ORDERED: SILVER NITRATE APPLICATOR 1 EA TP ONE (10:00)
== END 2020-06-01 08:05 | disposition home or self-care (01) ==
LOC: WOUND 08:04
PROVIDERS: ATTEND Surgery
DX: S71.001D Unspecified open wound, right hip, subsequent encounter (principal); L97.113 Non-pressure chronic ulcer of right thigh with necrosis of muscle; M19.90 Unspecified osteoarthritis, unspecified site; E05.90 Thyrotoxicosis, unspecified without thyrotoxic crisis or storm; F32.9 Major depressive disorder, single episode, unspecified; Z96.641 Presence of right artificial hip joint; Z90.710 Acquired absence of both cervix and uterus; Z79.82 Long term (current) use of aspirin; X58.XXXD Exposure to other specified factors, subsequent encounter
CPT/HCPCS: 97605

== ENCOUNTER 2020-06-15 07:58 | Outpatient (CLI) | payer MEDICARE ==
[2020-06-15] MEDS ORDERED: LIDOCAINE (4%) 40 MG/ML TOPICAL SOLN 50 ML BOTTLE TP SCH (09:00)
== END 2020-06-15 07:59 | disposition home or self-care (01) ==
LOC: WOUND 07:58
PROVIDERS: ATTEND Surgery
DX: S71.001D Unspecified open wound, right hip, subsequent encounter (principal); L97.113 Non-pressure chronic ulcer of right thigh with necrosis of muscle; M19.90 Unspecified osteoarthritis, unspecified site; E05.90 Thyrotoxicosis, unspecified without thyrotoxic crisis or storm; F32.9 Major depressive disorder, single episode, unspecified; Z96.641 Presence of right artificial hip joint; Z90.710 Acquired absence of both cervix and uterus; Z79.82 Long term (current) use of aspirin; X58.XXXD Exposure to other specified factors, subsequent encounter
CPT/HCPCS: 97605

== ENCOUNTER 2020-06-22 08:05 | Outpatient (CLI) | payer MEDICARE ==
[2020-06-22] MEDS ORDERED: LIDOCAINE (4%) 40 MG/ML TOPICAL SOLN 50 ML BOTTLE TP ONE (08:12)
== END 2020-06-22 08:06 | disposition home or self-care (01) ==
LOC: WOUND 08:05
PROVIDERS: ATTEND Surgery
DX: S71.001D Unspecified open wound, right hip, subsequent encounter (principal); L97.113 Non-pressure chronic ulcer of right thigh with necrosis of muscle; M19.90 Unspecified osteoarthritis, unspecified site; E05.90 Thyrotoxicosis, unspecified without thyrotoxic crisis or storm; F32.9 Major depressive disorder, single episode, unspecified; Z96.641 Presence of right artificial hip joint; Z90.710 Acquired absence of both cervix and uterus; Z79.82 Long term (current) use of aspirin; X58.XXXD Exposure to other specified factors, subsequent encounter
CPT/HCPCS: 97605

== ENCOUNTER 2020-06-29 07:59 | Outpatient (CLI) | payer MEDICARE ==
[2020-06-29] MEDS ORDERED: LIDOCAINE (4%) 40 MG/ML TOPICAL SOLN 50 ML BOTTLE TP ONE (08:02)
== END 2020-06-29 08:00 | disposition home or self-care (01) ==
LOC: WOUND 07:59
PROVIDERS: ATTEND Surgery
DX: S71.001D Unspecified open wound, right hip, subsequent encounter (principal); L97.113 Non-pressure chronic ulcer of right thigh with necrosis of muscle; M19.90 Unspecified osteoarthritis, unspecified site; E05.90 Thyrotoxicosis, unspecified without thyrotoxic crisis or storm; F32.9 Major depressive disorder, single episode, unspecified; Z96.641 Presence of right artificial hip joint; Z90.710 Acquired absence of both cervix and uterus; Z79.82 Long term (current) use of aspirin; X58.XXXD Exposure to other specified factors, subsequent encounter
CPT/HCPCS: 97605

== ENCOUNTER 2020-07-06 08:07 | Outpatient (CLI) | payer MEDICARE ==
[2020-07-06] MEDS ORDERED: LIDOCAINE (4%) 40 MG/ML TOPICAL SOLN 50 ML BOTTLE TP ONE (08:17)
== END 2020-07-06 08:08 | disposition home or self-care (01) ==
LOC: WOUND 08:07
PROVIDERS: ATTEND Surgery
DX: S71.001D Unspecified open wound, right hip, subsequent encounter (principal); L97.113 Non-pressure chronic ulcer of right thigh with necrosis of muscle; M19.90 Unspecified osteoarthritis, unspecified site; E05.90 Thyrotoxicosis, unspecified without thyrotoxic crisis or storm; F32.9 Major depressive disorder, single episode, unspecified; Z96.641 Presence of right artificial hip joint; Z90.710 Acquired absence of both cervix and uterus; Z79.82 Long term (current) use of aspirin; X58.XXXD Exposure to other specified factors, subsequent encounter
CPT/HCPCS: 97605

== ENCOUNTER 2020-07-13 08:00 | Outpatient (CLI) | payer MEDICARE ==
[2020-07-13] MEDS ORDERED: LIDOCAINE (4%) 40 MG/ML TOPICAL SOLN 50 ML BOTTLE TP ONE (08:07)
== END 2020-07-13 08:01 | disposition home or self-care (01) ==
LOC: WOUND 08:00
PROVIDERS: ATTEND Surgery
DX: S71.001D Unspecified open wound, right hip, subsequent encounter (principal); L97.113 Non-pressure chronic ulcer of right thigh with necrosis of muscle; M19.90 Unspecified osteoarthritis, unspecified site; E05.90 Thyrotoxicosis, unspecified without thyrotoxic crisis or storm; F32.9 Major depressive disorder, single episode, unspecified; Z96.641 Presence of right artificial hip joint; Z90.710 Acquired absence of both cervix and uterus; Z79.82 Long term (current) use of aspirin; X58.XXXD Exposure to other specified factors, subsequent encounter
CPT/HCPCS: 97605

== ENCOUNTER 2020-07-20 08:00 | Outpatient (CLI) | payer MEDICARE | END 2020-07-20 08:01 | disposition home or self-care (01) | LOC: WOUND 08:00 | PROVIDERS: ATTEND Surgery | DX: S71.001D Unspecified open wound, right hip, subsequent encounter (principal); L97.113 Non-pressure chronic ulcer of right thigh with necrosis of muscle; M19.90 Unspecified osteoarthritis, unspecified site; E05.90 Thyrotoxicosis, unspecified without thyrotoxic crisis or storm; F32.9 Major depressive disorder, single episode, unspecified; Z96.641 Presence of right artificial hip joint; Z90.710 Acquired absence of both cervix and uterus; Z79.82 Long term (current) use of aspirin; X58.XXXD Exposure to other specified factors, subsequent encounter | CPT/HCPCS: 97605 ==

== ENCOUNTER 2020-07-27 08:09 | Outpatient (CLI) | payer MEDICARE ==
[2020-07-27] MEDS ORDERED: LIDOCAINE (4%) 40 MG/ML TOPICAL SOLN 50 ML BOTTLE TP ONE ×2 (08:14→14:17)
== END 2020-07-27 08:10 | disposition home or self-care (01) ==
LOC: WOUND 08:09
PROVIDERS: ATTEND Surgery
DX: S71.001D Unspecified open wound, right hip, subsequent encounter (principal); L97.113 Non-pressure chronic ulcer of right thigh with necrosis of muscle; M19.90 Unspecified osteoarthritis, unspecified site; E05.90 Thyrotoxicosis, unspecified without thyrotoxic crisis or storm; F32.9 Major depressive disorder, single episode, unspecified; Z96.641 Presence of right artificial hip joint; Z90.710 Acquired absence of both cervix and uterus; Z79.82 Long term (current) use of aspirin; X58.XXXD Exposure to other specified factors, subsequent encounter
CPT/HCPCS: 97605

== ENCOUNTER 2020-08-03 08:10 | Outpatient (CLI) | payer MEDICARE ==
[2020-08-03] MEDS ORDERED: LIDOCAINE (4%) 40 MG/ML TOPICAL SOLN 50 ML BOTTLE TP SCH (08:30)
== END 2020-08-03 08:11 | disposition home or self-care (01) ==
LOC: WOUND 08:10
PROVIDERS: ATTEND Surgery
DX: S71.001D Unspecified open wound, right hip, subsequent encounter (principal); L97.113 Non-pressure chronic ulcer of right thigh with necrosis of muscle; M19.90 Unspecified osteoarthritis, unspecified site; E05.90 Thyrotoxicosis, unspecified without thyrotoxic crisis or storm; F32.9 Major depressive disorder, single episode, unspecified; Z96.641 Presence of right artificial hip joint; Z90.710 Acquired absence of both cervix and uterus; Z79.82 Long term (current) use of aspirin; X58.XXXD Exposure to other specified factors, subsequent encounter
CPT/HCPCS: 97605

== ENCOUNTER 2020-08-24 08:18 | Outpatient (CLI) | payer MEDICARE ==
[2020-08-24] MEDS ORDERED: LIDOCAINE (4%) 40 MG/ML TOPICAL SOLN 50 ML BOTTLE TP ONE (08:35)
== END 2020-08-24 08:19 | disposition home or self-care (01) ==
LOC: WOUND 08:18
PROVIDERS: ATTEND Surgery
DX: S71.001D Unspecified open wound, right hip, subsequent encounter (principal); L97.113 Non-pressure chronic ulcer of right thigh with necrosis of muscle; M19.90 Unspecified osteoarthritis, unspecified site; E05.90 Thyrotoxicosis, unspecified without thyrotoxic crisis or storm; F32.9 Major depressive disorder, single episode, unspecified; Z96.641 Presence of right artificial hip joint; Z90.710 Acquired absence of both cervix and uterus; Z79.82 Long term (current) use of aspirin; X58.XXXD Exposure to other specified factors, subsequent encounter
CPT/HCPCS: 97605

== ENCOUNTER 2020-08-31 08:07 | Outpatient (CLI) | payer MEDICARE ==
[2020-08-31] MEDS ORDERED: LIDOCAINE (4%) 40 MG/ML TOPICAL SOLN 50 ML BOTTLE TP ONE (08:12)
== END 2020-08-31 08:08 | disposition home or self-care (01) ==
LOC: WOUND 08:07
PROVIDERS: ATTEND Surgery
DX: S71.001D Unspecified open wound, right hip, subsequent encounter (principal); L97.113 Non-pressure chronic ulcer of right thigh with necrosis of muscle; M19.90 Unspecified osteoarthritis, unspecified site; E05.90 Thyrotoxicosis, unspecified without thyrotoxic crisis or storm; F32.9 Major depressive disorder, single episode, unspecified; Z96.641 Presence of right artificial hip joint; Z90.710 Acquired absence of both cervix and uterus; Z79.82 Long term (current) use of aspirin; X58.XXXD Exposure to other specified factors, subsequent encounter

== ENCOUNTER 2020-09-14 10:46 | Outpatient (CLI) | payer MEDICARE ==
[2020-09-14] MEDS ORDERED: LIDOCAINE (4%) 40 MG/ML TOPICAL SOLN 50 ML BOTTLE TP ONE (11:27)
== END 2020-09-14 10:47 | disposition home or self-care (01) ==
LOC: WOUND 10:46
PROVIDERS: ATTEND Surgery
DX: S71.001D Unspecified open wound, right hip, subsequent encounter (principal); L97.113 Non-pressure chronic ulcer of right thigh with necrosis of muscle; M19.90 Unspecified osteoarthritis, unspecified site; E05.90 Thyrotoxicosis, unspecified without thyrotoxic crisis or storm; F32.9 Major depressive disorder, single episode, unspecified; Z96.641 Presence of right artificial hip joint; Z90.710 Acquired absence of both cervix and uterus; Z79.82 Long term (current) use of aspirin; X58.XXXD Exposure to other specified factors, subsequent encounter

== ENCOUNTER 2020-09-21 09:28 | Outpatient (CLI) | payer MEDICARE ==
[2020-09-21] MEDS ORDERED: LIDOCAINE (4%) 40 MG/ML TOPICAL SOLN 50 ML BOTTLE TP ONE (09:57)
== END 2020-09-21 09:29 | disposition home or self-care (01) ==
LOC: WOUND 09:28
PROVIDERS: ATTEND Surgery
DX: S71.001D Unspecified open wound, right hip, subsequent encounter (principal); L97.113 Non-pressure chronic ulcer of right thigh with necrosis of muscle; M19.90 Unspecified osteoarthritis, unspecified site; E05.90 Thyrotoxicosis, unspecified without thyrotoxic crisis or storm; F32.9 Major depressive disorder, single episode, unspecified; Z96.641 Presence of right artificial hip joint; Z90.710 Acquired absence of both cervix and uterus; Z79.82 Long term (current) use of aspirin; X58.XXXD Exposure to other specified factors, subsequent encounter

== ENCOUNTER 2020-09-28 08:08 | Outpatient (CLI) | payer MEDICARE ==
[2020-09-28] MEDS ORDERED: LIDOCAINE (4%) 40 MG/ML TOPICAL SOLN 50 ML BOTTLE TP SCH (08:30)
== END 2020-09-28 08:09 | disposition home or self-care (01) ==
LOC: WOUND 08:08
PROVIDERS: ATTEND Surgery
DX: S71.001D Unspecified open wound, right hip, subsequent encounter (principal); L97.113 Non-pressure chronic ulcer of right thigh with necrosis of muscle; M19.90 Unspecified osteoarthritis, unspecified site; E05.90 Thyrotoxicosis, unspecified without thyrotoxic crisis or storm; F32.9 Major depressive disorder, single episode, unspecified; Z96.641 Presence of right artificial hip joint; Z90.710 Acquired absence of both cervix and uterus; Z79.82 Long term (current) use of aspirin; X58.XXXD Exposure to other specified factors, subsequent encounter

== ENCOUNTER 2020-10-05 08:05 | Outpatient (CLI) | payer MEDICARE ==
[2020-10-05] MEDS ORDERED: LIDOCAINE (4%) 40 MG/ML TOPICAL SOLN 50 ML BOTTLE TP ONE (08:09)
== END 2020-10-05 08:06 | disposition home or self-care (01) ==
LOC: WOUND 08:05
PROVIDERS: ATTEND Surgery
DX: S71.001D Unspecified open wound, right hip, subsequent encounter (principal); L97.113 Non-pressure chronic ulcer of right thigh with necrosis of muscle; M19.90 Unspecified osteoarthritis, unspecified site; E05.90 Thyrotoxicosis, unspecified without thyrotoxic crisis or storm; F32.9 Major depressive disorder, single episode, unspecified; Z96.641 Presence of right artificial hip joint; Z90.710 Acquired absence of both cervix and uterus; Z79.82 Long term (current) use of aspirin; X58.XXXD Exposure to other specified factors, subsequent encounter

== ENCOUNTER 2020-10-12 08:59 | Outpatient (CLI) | payer MEDICARE ==
[2020-10-12] MEDS ORDERED: LIDOCAINE (4%) 40 MG/ML TOPICAL SOLN 50 ML BOTTLE TP ONE (09:21)
== END 2020-10-12 09:00 | disposition home or self-care (01) ==
LOC: WOUND 08:59
PROVIDERS: ATTEND Surgery
DX: S71.001D Unspecified open wound, right hip, subsequent encounter (principal); L97.113 Non-pressure chronic ulcer of right thigh with necrosis of muscle; M19.90 Unspecified osteoarthritis, unspecified site; E05.90 Thyrotoxicosis, unspecified without thyrotoxic crisis or storm; F32.9 Major depressive disorder, single episode, unspecified; Z96.641 Presence of right artificial hip joint; Z90.710 Acquired absence of both cervix and uterus; Z79.82 Long term (current) use of aspirin; X58.XXXD Exposure to other specified factors, subsequent encounter
CPT/HCPCS: 11043; G0463; 99212

== ENCOUNTER 2020-10-19 09:02 | Outpatient (CLI) | payer MEDICARE ==
[2020-10-19] MEDS ORDERED: LIDOCAINE (4%) 40 MG/ML TOPICAL SOLN 50 ML BOTTLE TP ONE (09:21)
== END 2020-10-19 09:03 | disposition home or self-care (01) ==
LOC: WOUND 09:02
PROVIDERS: ATTEND Surgery
DX: S71.001D Unspecified open wound, right hip, subsequent encounter (principal); L97.113 Non-pressure chronic ulcer of right thigh with necrosis of muscle; M19.90 Unspecified osteoarthritis, unspecified site; E05.90 Thyrotoxicosis, unspecified without thyrotoxic crisis or storm; F32.9 Major depressive disorder, single episode, unspecified; Z96.641 Presence of right artificial hip joint; Z90.710 Acquired absence of both cervix and uterus; Z79.82 Long term (current) use of aspirin; X58.XXXD Exposure to other specified factors, subsequent encounter

== ENCOUNTER 2020-10-26 08:09 | Outpatient (CLI) | payer MEDICARE ==
[2020-10-26] MEDS ORDERED: LIDOCAINE (4%) 40 MG/ML TOPICAL SOLN 50 ML BOTTLE TP SCH (08:30)
== END 2020-10-26 08:10 | disposition home or self-care (01) ==
LOC: WOUND 08:09
PROVIDERS: ATTEND Surgery
DX: S71.001D Unspecified open wound, right hip, subsequent encounter (principal); L97.113 Non-pressure chronic ulcer of right thigh with necrosis of muscle; M19.90 Unspecified osteoarthritis, unspecified site; E05.90 Thyrotoxicosis, unspecified without thyrotoxic crisis or storm; F32.9 Major depressive disorder, single episode, unspecified; Z96.641 Presence of right artificial hip joint; Z90.710 Acquired absence of both cervix and uterus; Z79.82 Long term (current) use of aspirin; X58.XXXD Exposure to other specified factors, subsequent encounter

== ENCOUNTER 2020-11-02 08:42 | Outpatient (CLI) | payer MEDICARE ==
[2020-11-02] MEDS ORDERED: LIDOCAINE (4%) 40 MG/ML TOPICAL SOLN 50 ML BOTTLE TP ONE (09:17)
== END 2020-11-02 08:43 | disposition home or self-care (01) ==
LOC: WOUND 08:42
PROVIDERS: ATTEND Surgery
DX: S71.001D Unspecified open wound, right hip, subsequent encounter (principal); L97.113 Non-pressure chronic ulcer of right thigh with necrosis of muscle; M19.90 Unspecified osteoarthritis, unspecified site; E05.90 Thyrotoxicosis, unspecified without thyrotoxic crisis or storm; F32.9 Major depressive disorder, single episode, unspecified; Z96.641 Presence of right artificial hip joint; Z90.710 Acquired absence of both cervix and uterus; Z79.82 Long term (current) use of aspirin; X58.XXXD Exposure to other specified factors, subsequent encounter

== ENCOUNTER 2020-11-23 09:07 | Outpatient (CLI) | payer MEDICARE ==
[2020-11-23] MEDS ORDERED: LIDOCAINE (4%) 40 MG/ML TOPICAL SOLN 50 ML BOTTLE TP ONE (09:20)
== END 2020-11-23 09:08 | disposition home or self-care (01) ==
LOC: WOUND 09:07
PROVIDERS: ATTEND Surgery
DX: S71.001D Unspecified open wound, right hip, subsequent encounter (principal); L97.113 Non-pressure chronic ulcer of right thigh with necrosis of muscle; M19.90 Unspecified osteoarthritis, unspecified site; E05.90 Thyrotoxicosis, unspecified without thyrotoxic crisis or storm; F32.9 Major depressive disorder, single episode, unspecified; Z96.641 Presence of right artificial hip joint; Z90.710 Acquired absence of both cervix and uterus; Z79.82 Long term (current) use of aspirin; X58.XXXD Exposure to other specified factors, subsequent encounter

== ENCOUNTER 2020-11-30 09:12 | Outpatient (CLI) | payer MEDICARE ==
[2020-11-30] MEDS ORDERED: LIDOCAINE (4%) 40 MG/ML TOPICAL SOLN 50 ML BOTTLE TP ONE (09:20)
== END 2020-11-30 09:13 | disposition home or self-care (01) ==
LOC: WOUND 09:12
PROVIDERS: ATTEND Surgery
DX: S71.001D Unspecified open wound, right hip, subsequent encounter (principal); L97.113 Non-pressure chronic ulcer of right thigh with necrosis of muscle; M19.90 Unspecified osteoarthritis, unspecified site; E05.90 Thyrotoxicosis, unspecified without thyrotoxic crisis or storm; F32.9 Major depressive disorder, single episode, unspecified; Z96.641 Presence of right artificial hip joint; Z90.710 Acquired absence of both cervix and uterus; Z79.82 Long term (current) use of aspirin; X58.XXXD Exposure to other specified factors, subsequent encounter